=== PATIENT | male | born 1960 | race Caucasian/White ===

== ENCOUNTER 2018-08-02 10:19 | Emergency (ER) | payer MEDICAID ==
[~2018-08-02] VITALS: Ht 175.3 cm; Wt 83.3 kg
[~2018-08-02 10:19] MED LIST: IBUP-1985 PO; IBUP-1986 PO; NAPR220C15 PO; TERB12CR TP
[2018-08-02] MEDS ORDERED: HYDROcodone/acetaminophen 10/325mg tab PO ONE (10:40)
[2018-08-02 11:03] VITALS: BP 153/89
[2018-08-02] MEDS ORDERED: HYDR-569 PO (11:38)
== END 2018-08-02 11:49 | disposition home or self-care (01) ==
LOC: ER 10:20
DX: S60.512A Abrasion of left hand, initial encounter (principal); S60.811A Abrasion of right wrist, initial encounter; S00.81XA Abrasion of other part of head, initial encounter; W18.30XA Fall on same level, unspecified, initial encounter; Y93.89 Activity, other specified; Y92.89 Other specified places as the place of occurrence of the external cause; Y99.8 Other external cause status
CPT/HCPCS: 70450; 73130; 99284; A6257; A6258; A6449

== ENCOUNTER 2020-04-07 14:16 | Emergency (ER) | payer MEDICAID, OTHER ==
[~2020-04-07] VITALS: Ht 175.3 cm; Wt 77.8 kg
[~2020-04-07 14:16] MED LIST changes: +HYDR-4383 PO
[2020-04-07 14:25] VITALS: BP 131/79
[2020-04-07] MEDS ORDERED: triamcinolone acetonide 40mg/ml inj IM ONE (16:15)
[2020-04-07] MEDS ORDERED: TRIA15CR61 TOP (16:29)
[2020-04-07] MEDS ORDERED: CEPH500C5 PO (16:29)
[2020-04-07] MEDS ORDERED: MUPI22OI30 TOP (16:29)
== END 2020-04-07 16:39 | disposition home or self-care (01) ==
LOC: ER 14:17
DX: L40.9 Psoriasis, unspecified (principal); L01.00 Impetigo, unspecified; L03.116 Cellulitis of left lower limb; L03.115 Cellulitis of right lower limb; L03.114 Cellulitis of left upper limb; L03.113 Cellulitis of right upper limb; Z72.89 Other problems related to lifestyle; Z79.899 Other long term (current) drug therapy
CPT/HCPCS: 96372; 99283; J3301

== ENCOUNTER 2020-08-11 08:40 | Emergency (ER) | payer MEDICAID ==
[~2020-08-11] VITALS: Ht 175.3 cm; Wt 79.0 kg
[~2020-08-11 08:40] MED LIST changes: -HYDR-4383 PO; -IBUP-1985 PO; -IBUP-1986 PO; -NAPR220C15 PO; +NO HOME MEDS; -TERB12CR TP
[2020-08-11 08:51] VITALS: BP 143/75
== END 2020-08-11 09:56 | disposition home or self-care (01) ==
LOC: ER 08:40
DX: R18.8 Other ascites (principal); K76.9 Liver disease, unspecified; R10.84 Generalized abdominal pain; Z72.89 Other problems related to lifestyle
CPT/HCPCS: 99281

== ENCOUNTER 2020-08-14 11:31 | Inpatient (IN) | payer MEDICAID ==
[~2020-08-14] VITALS: Ht 175.3 cm; Wt 80.6 kg
[2020-08-14] MEDS ORDERED: normal saline 1000ML IV soln IVB ONE (11:55)
[2020-08-14 12:14] LABS: BASOPHILS # (AUTO) 0.1 X10'3 (0-0.2); BASOPHILS % (AUTO) 0.7 % (0-1); EOSINOPHILS % (AUTO) 0.2 % (0-6); HEMOGLOBIN 13.3 g/dl (14.0-17.9); LYMPHOCYTES # (AUTO) 1.2 X10'3 (1.1-4.8); LYMPHOCYTES % (AUTO) 13.6 % (21-51); MEAN CORPUSCULAR HEMOGLOBIN 34.7 PG (27.0-31.0); MEAN CORPUSCULAR HGB CONC 34.1 g/dL (33.0-36.5); MEAN CORPUSCULAR VOLUME 101.7 FL (78-98); MEAN PLATELET VOLUME 8.1 FL (7.4-10.4); MONOCYTES # (AUTO) 1.1 X10'3 (0-0.9); MONOCYTES % (AUTO) 12.1 % (2-12); NEUTROPHILS # (AUTO) 6.7 X10'3 (1.8-7.7); NEUTROPHILS % (AUTO) 73.4 % (42-75); PLATELET COUNT 152 X10'3 (140-440); RED BLOOD COUNT 3.84 X10'6 (4.70-6.10); RED CELL DISTRIBUTION WIDTH 14.2 % (11.5-14.5); WHITE BLOOD COUNT 9.2 X10'3 (4.5-11.0)
[2020-08-14 12:33] LABS: ALANINE AMINOTRANSFERASE 44 U/L (12-78); ALBUMIN 2.8 G/DL (3.4-5.0); ALKALINE PHOSPHATASE 155 IU/L (46-116); ANION GAP 8 (8-16); ASPARTATE AMINO TRANSFERASE 145 U/L (10-37); BILIRUBIN,TOTAL 4.2 MG/DL (0.1-1.0); BLOOD UREA NITROGEN 3 MG/DL (7-18); BUN/CREATININE RATIO 4.8 (5.4-32.0); CALCIUM 8.6 MG/DL (8.5-10.1); CHLORIDE 96 MMOL/L (99-107); CREATININE 0.62 MG/DL (0.60-1.10); ETHANOL 0.023 GM/DL (0.0-0.010); GLUCOSE 107 MG/DL (70-104); POTASSIUM 3.7 MMOL/L (3.5-5.1); SODIUM 130 MMOL/L (135-145); TOTAL CARBON DIOXIDE 26.3 MMOL/L (24-32); eGFR > 90 ML/MIN
[2020-08-14 12:35] LABS: ALBUMIN/GLOBULIN RATIO 0.8 (1.1-1.5); TOTAL PROTEIN 6.4 G/DL (6.4-8.2)
[2020-08-14] MEDS ORDERED: magnesium hydroxide 30ml (MOM) UD suspension PO PRN (13:10)
[2020-08-14] MEDS ORDERED: acetaminophen 325mg tablet PO PRN ×2 (13:10)
[2020-08-14] MEDS ORDERED: potassium CL 10mEq/100ml bag 100 ML IV PRN ×2 (13:10)
[2020-08-14] MEDS ORDERED: potassium Cl 20 mEq SR tablet PO PRN ×2 (13:10)
[2020-08-14] MEDS ORDERED: mag hydrox/Alum hydrox/simeth 30ml oral suspension PO PRN (13:10)
[2020-08-14] MEDS ORDERED: HYDROcodone/acetaminophen 5mg/325mg tablet PO PRN (13:10)
[2020-08-14] MEDS ORDERED: normal saline 1000ml 1,000 ML IV SCH (13:10)
[2020-08-14] MEDS ORDERED: LORazepam 2 mg/ml vial IV PRN ×2 (13:10→15:15)
[2020-08-14] MEDS ORDERED: haloperidol 5mg tablet PO PRN ×2 (13:10→15:15)
[2020-08-14] MEDS ORDERED: ondansetron/PF 4mg/2ml inj IV PRN (13:10)
[2020-08-14] MEDS ORDERED: HYDROcodone/acetaminophen 10/325mg tab PO PRN (13:10)
[2020-08-14] MEDS ORDERED: dextrose 50%-water 50ml dispensing syringe IV PRN (13:10)
[2020-08-14] MEDS ORDERED: magnesium 2GM in 50ml NS 50 ML IV PRN (13:10)
[2020-08-14] MEDS ORDERED: magnesium 4gm in 100ml NS 100 ML IV PRN (13:10)
[2020-08-14] MEDS ORDERED: thiamine 100mg/ml 2ml inj. IV ONE (13:10)
[2020-08-14] MEDS ORDERED: magnesium Cl slow-release 64mg tablet PO PRN (13:10)
[2020-08-14] MEDS ORDERED: haloperidol lactate 5mg/ml inj IM PRN ×2 (13:10→15:15)
--- NOTE | 2020-08-14 13:11 | NUR ---
PT NOTIFIED STAYING THE NIGHT. NO HOME MEDS EXCEPT IBPROFEN NEEDED. PT KNOWS GOING TO [facility] FOR FLUID TO BE REMOVED.
[2020-08-14] MEDS ORDERED: IBUP-1985 PO (13:14)
[2020-08-14] MEDS ORDERED: iohexol 300mg/ml 100ml inj. ONE (13:30)
--- NOTE | 2020-08-14 13:42 | NUR ---
PT BACK FROM CT IV INFILTRATED, SENT PT BACK.
[2020-08-14 14:15] LABS: CLARITY,URINE SLIGHTLY CLOUDY (Clear); GLUCOSE, URINE NEGATIVE (Neg); KETONES,URINE 15 mg/dl (Neg); LEUKOCYTE ESTERASE ,URINE NEGATIVE (Neg); OCCULT BLOOD,URINE NEGATIVE (Neg); PROTEIN,URINE TRACE mg/dl (Neg); UROBILINOGEN,URINE >=8.0 E.U/dL (0.2-1.0)
[2020-08-14 14:17] LABS: COLOR,URINE AMBER (Yellow); NITRITES, URINE NEGATIVE (Neg); UA COLLECTION TYPE CLN CATCH MIDSTREAM
[2020-08-14 14:26] LABS: MUCUS STRANDS MANY /LPF (Neg); URINE AMPHETAMINE SCREEN NEGATIVE (Neg); URINE BARBITUATE SCREEN NEGATIVE (Neg); URINE BENZODIAZEPINES SCREEN NEGATIVE (Neg); URINE CANNABINOID SCREEN NEGATIVE (Neg); URINE COCAINE SCREEN NEGATIVE (Neg); URINE METHADONE SCREEN NEGATIVE (Neg); URINE OPIATE SCREEN NEGATIVE (Neg); URINE PHENCYCLIDINE SCREEN NEGATIVE (Neg)
--- NOTE | 2020-08-14 14:26 | NUR ---
RELIEVING RN FOR BREAK, PT IS RESTING QUIETLY ON DR LISA DAWSON REQUESTING PICC NURSE TO PLACE IV PT HAS HAD MULTIPLE ATTEMPTS
[2020-08-14 14:27] LABS: SQUAMOUS EPITHELIAL CELL,UR FEW /LPF (FEW)
[2020-08-14 14:28] LABS: BACTERIA,URINE FEW /HPF (Neg); RBC,URINE 0-2 /HPF (0-2); TRANSITIONAL EPI CELLS,URINE FEW /HPF
[2020-08-14 14:29] LABS: WBC,URINE 0-4 /HPF (0-4)
--- NOTE | 2020-08-14 15:28 | NUR ---
CALLED CT TO NOTIFY THAT PICC NURSE PLACED IV IN RIGHT UPPER ARM
[2020-08-14] MEDS: nicotine 14mg patch - 24hr TD SCH (15:32)
[2020-08-14] MEDS ORDERED: iohexol 350MG/ML 100ml bottle IV ONE (15:37)
--- NOTE | 2020-08-14 16:06 | NUR ---
pt refuses to wear gown, pt upset ER does not have tv for him to watch the game. Pt informed the floor will be a wait on the room.
[2020-08-14 18:30] VITALS: BP 122/71
--- NOTE | 2020-08-14 18:30 | NUR ---
Patient in room [facility] 356. I have received report from Rajni MCGOWAN and had the opportunity to ask questions and assume patient care.
[2020-08-14] MEDS: K and/or MAG REPLACEMENT MC SCH (20:00)
[2020-08-14] MEDS ORDERED: temazepam 15mg capsule PO PRN (21:00)
[2020-08-15] VITALS: BP 106/57
[2020-08-15 05:40] LABS: BASOPHILS % (AUTO) 0.7 % (0-1); EOSINOPHILS % (AUTO) 0.6 % (0-6); HEMATOCRIT 36.2 % (42.0-52.0); HEMOGLOBIN 12.3 g/dl (14.0-17.9); LYMPHOCYTES # (AUTO) 1.6 X10'3 (1.1-4.8); LYMPHOCYTES % (AUTO) 23.2 % (21-51); MEAN CORPUSCULAR HEMOGLOBIN 35.1 PG (27.0-31.0); MEAN CORPUSCULAR HGB CONC 34.1 g/dL (33.0-36.5); MEAN PLATELET VOLUME 8.3 FL (7.4-10.4); MONOCYTES # (AUTO) 0.8 X10'3 (0-0.9); MONOCYTES % (AUTO) 12.3 % (2-12); NEUTROPHILS # (AUTO) 4.3 X10'3 (1.8-7.7); NEUTROPHILS % (AUTO) 63.2 % (42-75); PLATELET COUNT 146 X10'3 (140-440); RED BLOOD COUNT 3.51 X10'6 (4.70-6.10); RED CELL DISTRIBUTION WIDTH 14.1 % (11.5-14.5); WHITE BLOOD COUNT 6.7 X10'3 (4.5-11.0)
[2020-08-15 05:53] LABS: PARTIAL THROMBOPLASTIN TIME 30 SECONDS (22-32)
[2020-08-15 06:00] LABS: ALANINE AMINOTRANSFERASE 38 U/L (12-78); ALBUMIN 2.5 G/DL (3.4-5.0); ALKALINE PHOSPHATASE 141 IU/L (46-116); ANION GAP 7 (8-16); ASPARTATE AMINO TRANSFERASE 118 U/L (10-37); BILIRUBIN,TOTAL 4.5 MG/DL (0.1-1.0); BLOOD UREA NITROGEN 4 MG/DL (7-18); BUN/CREATININE RATIO 6.1 (5.4-32.0); CALCIUM 8.2 MG/DL (8.5-10.1); CHLORIDE 98 MMOL/L (99-107); CREATININE 0.66 MG/DL (0.60-1.10); GLUCOSE 96 MG/DL (70-104); HDL CHOLESTEROL 9 MG/DL (35-60); LDL CHOLESTEROL 63 MG/DL (50-100); MAGNESIUM 1.9 MG/DL (1.5-2.4); POTASSIUM 3.5 MMOL/L (3.5-5.1); SODIUM 133 MMOL/L (135-145); TOTAL CARBON DIOXIDE 27.7 MMOL/L (24-32); eGFR > 90 ML/MIN
[2020-08-15 06:02] LABS: ALBUMIN/GLOBULIN RATIO 0.8 (1.1-1.5); CHOL/HDL RATIO 8.4 (0.00-4.99); CHOLESTEROL 76 MG/DL (0-200); TOTAL PROTEIN 5.8 G/DL (6.4-8.2); TRIGLYCERIDES 100 MG/DL (20-135)
--- NOTE | 2020-08-15 06:20 | NUR ---
Problems reprioritized. Patient report given, questions answered & plan of care reviewed with Sara RN.
[2020-08-15 08:00] VITALS: BP 120/73
[2020-08-15] MEDS: K and/or MAG REPLACEMENT MC SCH (08:00)
[2020-08-15] MEDS ORDERED: folic acid 1mg tablet PO SCH (08:00)
[2020-08-15] MEDS ORDERED: multivitamins, therapeutics tablet PO SCH (08:00)
[2020-08-15] MEDS ORDERED: thiamine 100mg tablet PO SCH (08:00)
[2020-08-15] MEDS: nicotine 14mg patch - 24hr TD SCH (08:42)
[2020-08-15 11:54] VITALS: BP 107/65
--- NOTE | 2020-08-15 12:00 | NUR ---
Patient in room [facility] 356. I have received report from Sara MCGOWAN and had the opportunity to ask questions and assume patient care.
--- NOTE | 2020-08-15 12:04 | NUR ---
Notified Dr. Snider that this patient is refusing a biopsy procedure. Pt only wants "the fluid off my stomach and im out of here."
--- NOTE | 2020-08-15 15:00 | NUR ---
Patient refused paracentesis and liver biopsy. Patient was educated on the importance of both the paracentesis and liver biopsy yet he still refused the procedures. Patient discharged home with orders to follow up with a his primary care provider.
[2020-08-16 12:01] LABS: CARCINOEMBRYONIC ANTIGEN 2.7 ng/mL (0.0-4.7); HBSAG SCREEN Negative (Negative); HEP A AB, IGM Negative (Negative); HEPATITIS C ANTIBODY <0.1 s/co ratio (0.0-0.9)
[2020-08-16] MEDS ORDERED: LORazepam 2 mg/ml vial IV PRN ×2 (13:10→15:15)
[2020-08-16] MEDS ORDERED: LORazepam 1 MG tablet PO PRN ×2 (13:10→15:15)
[2020-08-18] MEDS ORDERED: LORazepam 1 MG tablet PO PRN ×2 (13:10→15:15)
[2020-08-18] MEDS ORDERED: LORazepam 2 mg/ml vial IV PRN ×2 (13:10→15:15)
== END 2020-08-15 14:58 | disposition home or self-care (01) | DRG 281 ==
LOC: ER 11:32 → ED HOLD 13:07 → SUR 3N 17:22
PROVIDERS: ADMIT Family Medicine; ATTEND Family Medicine
PROC: BW201ZZ Computerized Tomography (CT Scan) of Abdomen using Low Osmolar Contrast (ICD-10-PCS; principal; 2020-08-14)
DX: C22.8 Malignant neoplasm of liver, primary, unspecified as to type (principal); K70.11 Alcoholic hepatitis with ascites; F17.210 Nicotine dependence, cigarettes, uncomplicated; K76.0 Fatty (change of) liver, not elsewhere classified; E87.1 Hypo-osmolality and hyponatremia; R74.01 Elevation of levels of liver transaminase levels; D53.9 Nutritional anemia, unspecified; D68.9 Coagulation defect, unspecified; E80.6 Other disorders of bilirubin metabolism; F10.20 Alcohol dependence, uncomplicated; Z88.0 Allergy status to penicillin
CPT/HCPCS: 36415; 71045; 74170; 80053; 80061; 80074; 80305; 80320; 81001; 82103; 82140; 82378; 83735; 85025; 85610; 85730; 86301; 86304; 87081; 93005; 96361; 96374; 99285; G0378; J3411; J7030; Q9967

== ENCOUNTER 2020-09-07 06:53 | Day surgery (SDC) | payer MEDICAID ==
[~2020-09-07] VITALS: Ht 175.3 cm; Wt 78.3 kg
[~2020-09-07 06:53] MED LIST changes: +IBUP-1985 PO; -NO HOME MEDS
[2020-09-07] MEDS ORDERED: albumin 25% 100mL bottle x 1 IV PRN (07:30)
[2020-09-07 08:05] VITALS: BP 126/68
[2020-09-07 09:15] VITALS: BP 125/65
[2020-09-07 09:30] VITALS: BP 122/62
[2020-09-07 09:45] VITALS: BP 125/68
[2020-09-07 10:00] VITALS: BP 119/60
== END 2020-09-07 10:05 | disposition home or self-care (01) ==
LOC: SSTAY O 06:53
PROVIDERS: ATTEND Radiology Vascular & Interventional Radiology
DX: R18.8 Other ascites (principal); D64.9 Anemia, unspecified; E87.1 Hypo-osmolality and hyponatremia; E80.6 Other disorders of bilirubin metabolism; Z98.890 Other specified postprocedural states; F17.210 Nicotine dependence, cigarettes, uncomplicated; Z88.0 Allergy status to penicillin; Z72.89 Other problems related to lifestyle
CPT/HCPCS: 49083

== ENCOUNTER 2020-09-15 06:59 | Day surgery (SDC) | payer MEDICAID ==
[~2020-09-15] VITALS: Ht 154.9 cm; Wt 80.8 kg
[2020-09-15] MEDS ORDERED: albumin 25% 100mL bottle x 1 IV PRN (07:20)
[2020-09-15 07:43] VITALS: BP 124/65
[2020-09-15 08:53] VITALS: BP 127/74
[2020-09-15 09:32] VITALS: BP 127/53
[2020-09-15 09:47] VITALS: BP 110/54
[2020-09-15 10:02] VITALS: BP 104/47
[2020-09-15 10:30] VITALS: BP 114/49
== END 2020-09-15 10:40 | disposition home or self-care (01) ==
LOC: SSTAY O 06:59
PROVIDERS: ATTEND Radiology Vascular & Interventional Radiology
DX: R18.8 Other ascites (principal); D64.9 Anemia, unspecified; E87.1 Hypo-osmolality and hyponatremia; E80.6 Other disorders of bilirubin metabolism; Z98.890 Other specified postprocedural states; F17.210 Nicotine dependence, cigarettes, uncomplicated; Z72.89 Other problems related to lifestyle; Z79.899 Other long term (current) drug therapy
CPT/HCPCS: 49083; P9047

== ENCOUNTER 2020-09-22 07:21 | Day surgery (SDC) | payer MEDICAID ==
[~2020-09-22] VITALS: Ht 175.3 cm; Wt 80.1 kg
[2020-09-22] MEDS ORDERED: albumin 25% 100mL bottle x 1 IV PRN (07:45)
[2020-09-22] MEDS ORDERED: MILK1CAP3 PO (08:02)
[2020-09-22 08:36] VITALS: BP_SYST 123; BP_SYST 125; BP_DIAS 72; BP_DIAS 75
[2020-09-22 08:51] VITALS: BP 121/68
[2020-09-22 09:06] VITALS: BP 110/58
[2020-09-22 09:21] VITALS: BP 107/61
[2020-09-22 09:36] VITALS: BP 109/62
[2020-09-22 09:50] VITALS: BP 134/59
== END 2020-09-22 10:00 | disposition home or self-care (01) ==
LOC: SSTAY O 07:21
PROVIDERS: ATTEND Radiology Diagnostic Radiology
DX: R18.8 Other ascites (principal); E87.1 Hypo-osmolality and hyponatremia; E64.9 Sequelae of unspecified nutritional deficiency; Z72.89 Other problems related to lifestyle; F17.290 Nicotine dependence, other tobacco product, uncomplicated; E80.6 Other disorders of bilirubin metabolism; Z98.890 Other specified postprocedural states; F17.210 Nicotine dependence, cigarettes, uncomplicated; Z88.0 Allergy status to penicillin; Z79.899 Other long term (current) drug therapy
CPT/HCPCS: 49083; P9047

== ENCOUNTER 2020-10-02 06:24 | Day surgery (SDC) | payer MEDICAID ==
[~2020-10-02] VITALS: Ht 175.3 cm; Wt 82.0 kg
[2020-10-02] VITALS (10 sets, daily range): BP systolic 91–116; BP diastolic 43–65
[~2020-10-02 06:24] MED LIST changes: -IBUP-1985 PO; +MILK1CAP3 PO
[2020-10-02] MEDS ORDERED: IBUP-1985 PO (07:18)
[2020-10-02] MEDS ORDERED: SPIR25TA5 PO (07:18)
[2020-10-02] MEDS ORDERED: FURO20TA4 PO (07:18)
[2020-10-02] MEDS: albumin 25% 100mL bottle x 1 IV PRN ×2 (09:03→09:51)
== END 2020-10-02 10:40 | disposition home or self-care (01) ==
LOC: SSTAY O 06:24
PROVIDERS: ATTEND Radiology Diagnostic Radiology
DX: R18.8 Other ascites (principal); D64.9 Anemia, unspecified; E87.1 Hypo-osmolality and hyponatremia; E80.6 Other disorders of bilirubin metabolism; Z98.890 Other specified postprocedural states; Z72.89 Other problems related to lifestyle; F17.210 Nicotine dependence, cigarettes, uncomplicated; Z88.0 Allergy status to penicillin; Z79.899 Other long term (current) drug therapy
CPT/HCPCS: 49083; P9047

== ENCOUNTER 2020-10-12 06:34 | Day surgery (SDC) | payer MEDICAID ==
[~2020-10-12] VITALS: Ht 175.3 cm; Wt 82.6 kg
[2020-10-12] VITALS (10 sets, daily range): BP systolic 105–126; BP diastolic 55–69
[~2020-10-12 06:34] MED LIST changes: +FURO20TA4 PO; +IBUP-1985 PO; +SPIR25TA5 PO
[2020-10-12] MEDS ORDERED: normal saline 1000ml 1,000 ML IV PRN (06:50)
[2020-10-12] MEDS ORDERED: albumin 25% 100mL bottle x 1 IV PRN (06:50)
== END 2020-10-12 10:25 | disposition home or self-care (01) ==
LOC: SSTAY O 06:34
PROVIDERS: ATTEND Radiology Vascular & Interventional Radiology
DX: R18.8 Other ascites (principal); Z72.89 Other problems related to lifestyle; F17.290 Nicotine dependence, other tobacco product, uncomplicated; D64.9 Anemia, unspecified; E87.1 Hypo-osmolality and hyponatremia; E80.6 Other disorders of bilirubin metabolism; Z98.890 Other specified postprocedural states; F17.210 Nicotine dependence, cigarettes, uncomplicated; Z88.0 Allergy status to penicillin; Z79.899 Other long term (current) drug therapy
CPT/HCPCS: 49083; P9047

== ENCOUNTER 2020-10-19 07:14 | Day surgery (SDC) | payer MEDICAID ==
[2020-10-19] VITALS (9 sets, daily range): BP systolic 98–116; BP diastolic 51–71
[~2020-10-19] VITALS: Ht 175.3 cm; Wt 80.6 kg
[2020-10-19] MEDS ORDERED: albumin 25% 100mL bottle x 1 IV PRN (07:30)
== END 2020-10-19 10:05 | disposition home or self-care (01) ==
LOC: SSTAY O 07:14
PROVIDERS: ATTEND Radiology Diagnostic Radiology
DX: R18.8 Other ascites (principal); D64.9 Anemia, unspecified; E87.1 Hypo-osmolality and hyponatremia; E80.6 Other disorders of bilirubin metabolism; Z72.89 Other problems related to lifestyle; F17.210 Nicotine dependence, cigarettes, uncomplicated; Z88.0 Allergy status to penicillin; Z79.899 Other long term (current) drug therapy
CPT/HCPCS: 49083; P9047

== ENCOUNTER 2020-10-27 07:34 | Day surgery (SDC) | payer MEDICAID ==
[2020-10-27] VITALS (8 sets, daily range): BP systolic 99–151; BP diastolic 53–77
[~2020-10-27] VITALS: Ht 175.3 cm; Wt 81.8 kg
[~2020-10-27 07:34] MED LIST changes: -MILK1CAP3 PO
[2020-10-27] MEDS ORDERED: albumin 25% 100mL bottle x 1 IV PRN (07:55)
[2020-10-27] MEDS ORDERED: normal saline 1000ml 1,000 ML IV PRN (07:55)
== END 2020-10-27 10:15 | disposition home or self-care (01) ==
LOC: SSTAY O 07:34
PROVIDERS: ATTEND Radiology Diagnostic Radiology
DX: R18.8 Other ascites (principal); F17.290 Nicotine dependence, other tobacco product, uncomplicated; D64.9 Anemia, unspecified; E87.1 Hypo-osmolality and hyponatremia; E80.6 Other disorders of bilirubin metabolism; F17.210 Nicotine dependence, cigarettes, uncomplicated; Z72.89 Other problems related to lifestyle; Z88.0 Allergy status to penicillin; Z79.899 Other long term (current) drug therapy
CPT/HCPCS: 49083; P9047

== ENCOUNTER 2020-11-02 06:45 | Day surgery (SDC) | payer MEDICAID ==
[~2020-11-02] VITALS: Ht 175.3 cm; Wt 82.0 kg
[2020-11-02] MEDS ORDERED: albumin 25% 100mL bottle x 1 IV PRN (07:05)
[2020-11-02 07:40] VITALS: BP 123/61
[2020-11-02 08:35] VITALS: BP 117/67
[2020-11-02 08:49] VITALS: BP 114/60
[2020-11-02 09:04] VITALS: BP 113/58
[2020-11-02 09:20] VITALS: BP 107/52
== END 2020-11-02 09:35 | disposition home or self-care (01) ==
LOC: SSTAY O 06:45
PROVIDERS: ATTEND Radiology Vascular & Interventional Radiology
DX: R18.8 Other ascites (principal); D64.9 Anemia, unspecified; F17.210 Nicotine dependence, cigarettes, uncomplicated; Z72.89 Other problems related to lifestyle; Z88.0 Allergy status to penicillin; Z98.890 Other specified postprocedural states
CPT/HCPCS: 49083; P9047

== ENCOUNTER 2020-11-07 10:45 | Emergency (ER) | payer MEDICAID ==
[~2020-11-07] VITALS: Ht 175.3 cm; Wt 76.6 kg
--- NOTE | 2020-11-07 17:40 | NUR ---
KAREEM Berry bedside for paracentesis, RN assist. Verbal order received to remove 4 litres and may remove a 5th litre if still flowing.
[2020-11-07 18:16] VITALS: BP 116/55
== END 2020-11-07 19:00 | disposition home or self-care (01) ==
LOC: ER 10:45
DX: R06.02 Shortness of breath (principal); R10.9 Unspecified abdominal pain; Z88.0 Allergy status to penicillin; Z79.899 Other long term (current) drug therapy; Z98.890 Other specified postprocedural states
CPT/HCPCS: 49083; 99285

== ENCOUNTER 2020-11-10 11:08 | Emergency (ER) | payer MEDICAID ==
[~2020-11-10] VITALS: Ht 175.3 cm; Wt 78.6 kg
[2020-11-10 11:13] VITALS: BP 124/60
== END 2020-11-10 11:59 | disposition home or self-care (01) ==
LOC: ER 11:09
DX: L76.82 Other postprocedural complications of skin and subcutaneous tissue (principal); L40.9 Psoriasis, unspecified; Z88.0 Allergy status to penicillin; Z79.899 Other long term (current) drug therapy
CPT/HCPCS: 12001; 99282

== ENCOUNTER 2020-11-13 06:37 | Day surgery (SDC) | payer MEDICAID ==
[2020-11-13] VITALS (7 sets, daily range): BP systolic 105–133; BP diastolic 49–80
[~2020-11-13] VITALS: Ht 175.3 cm; Wt 81.3 kg
[2020-11-13] MEDS ORDERED: albumin 25% 100mL bottle x 1 IV PRN (06:50)
== END 2020-11-13 09:28 | disposition home or self-care (01) ==
LOC: SSTAY O 06:37
PROVIDERS: ATTEND Radiology Diagnostic Radiology
DX: R18.8 Other ascites (principal); D64.9 Anemia, unspecified; E87.1 Hypo-osmolality and hyponatremia; Z72.89 Other problems related to lifestyle; E80.6 Other disorders of bilirubin metabolism; Z98.890 Other specified postprocedural states; F17.210 Nicotine dependence, cigarettes, uncomplicated; Z88.0 Allergy status to penicillin; Z79.899 Other long term (current) drug therapy
CPT/HCPCS: 49083; P9047

== ENCOUNTER 2020-11-17 07:30 | Day surgery (SDC) | payer MEDICAID ==
[~2020-11-17] VITALS: Ht 175.3 cm; Wt 81.3 kg
[2020-11-17] VITALS (8 sets, daily range): BP systolic 70–129; BP diastolic 52–65
[2020-11-17] MEDS ORDERED: albumin 25% 100mL bottle x 1 IV PRN (07:45)
[2020-11-17] MEDS ORDERED: LACT10SO57 PO (07:49)
== END 2020-11-17 10:10 | disposition home or self-care (01) ==
LOC: SSTAY O 07:30
PROVIDERS: ATTEND Radiology Vascular & Interventional Radiology
DX: R18.8 Other ascites (principal); D64.9 Anemia, unspecified; E87.1 Hypo-osmolality and hyponatremia; E80.6 Other disorders of bilirubin metabolism; Z88.0 Allergy status to penicillin; Z98.890 Other specified postprocedural states; F17.210 Nicotine dependence, cigarettes, uncomplicated; Z72.89 Other problems related to lifestyle; Z79.899 Other long term (current) drug therapy
CPT/HCPCS: 49083; P9047

== ENCOUNTER 2020-11-19 12:05 | Inpatient (IN) | payer MEDICAID ==
[~2020-11-19] VITALS: Ht 175.3 cm; Wt 90.0 kg
[~2020-11-19 12:05] MED LIST changes: +LACT10SO57 PO
[2020-11-19] MEDS ORDERED: oxyCODONE IR 5mg (immed. release) tablet PO ONE (12:55)
[2020-11-19] MEDS ORDERED: ondansetron/PF 4mg/2ml inj IV ONE (12:55)
[2020-11-19 13:21] LABS: BASOPHILS % (AUTO) 0.3 % (0-1); EOSINOPHILS % (AUTO) 0.5 % (0-6); HEMATOCRIT 29.1 % (42.0-52.0); LYMPHOCYTES # (AUTO) 1.1 X10'3 (1.1-4.8); LYMPHOCYTES % (AUTO) 11.7 % (21-51); MEAN CORPUSCULAR VOLUME 98.5 FL (78-98); MEAN PLATELET VOLUME 7.2 FL (7.4-10.4); MONOCYTES % (AUTO) 10.5 % (2-12); NEUTROPHILS # (AUTO) 7.2 X10'3 (1.8-7.7); PLATELET COUNT 108 X10'3 (140-440); RED BLOOD COUNT 2.96 X10'6 (4.70-6.10); WHITE BLOOD COUNT 9.4 X10'3 (4.5-11.0)
[2020-11-19 13:40] LABS: ALANINE AMINOTRANSFERASE 42 U/L (12-78); ALBUMIN/GLOBULIN RATIO 1.1 (1.1-1.5); ALKALINE PHOSPHATASE 111 IU/L (46-116); ANION GAP 12 (8-16); ASPARTATE AMINO TRANSFERASE 65 U/L (10-37); BILIRUBIN,TOTAL 3.5 MG/DL (0.1-1.0); BLOOD UREA NITROGEN 18 MG/DL (7-18); BUN/CREATININE RATIO 13.8 (5.4-32.0); CALCIUM 8.6 MG/DL (8.5-10.1); CHLORIDE 82 MMOL/L (99-107); GLUCOSE 109 MG/DL (70-104); LIPASE 259 U/L (73-393); POTASSIUM 4.9 MMOL/L (3.5-5.1); TOTAL CARBON DIOXIDE 19.2 MMOL/L (24-32); TOTAL PROTEIN 5.8 G/DL (6.4-8.2); TROPONIN I < 0.04 NG/ML (0.0-0.05); eGFR 57 ML/MIN
[2020-11-19 13:41] LABS: SODIUM 113 MMOL/L (135-145)
[2020-11-19 13:46] LABS: CLARITY,URINE CLEAR (Clear); COLOR,URINE YELLOW (Yellow); GLUCOSE, URINE NEGATIVE (Neg); KETONES,URINE NEGATIVE (Neg); LEUKOCYTE ESTERASE ,URINE NEGATIVE (Neg); NITRITES, URINE NEGATIVE (Neg); OCCULT BLOOD,URINE NEGATIVE (Neg); PH,URINE 5.5 (4.8-8.0); PROTEIN,URINE NEGATIVE (Neg); UA COLLECTION TYPE URINAL; UROBILINOGEN,URINE 0.2 E.U/dL (0.2-1.0)
[2020-11-19 14:49] LABS: HEMOGLOBIN 9.9 g/dl (14.0-17.9); MEAN CORPUSCULAR HEMOGLOBIN 35.5 PG (27.0-31.0); MEAN CORPUSCULAR HGB CONC 35.4 g/dL (33.0-36.5)
[2020-11-19 14:51] LABS: ACANTHOCYTES FEW; BURR CELLS FEW; PLATELET ESTIMATE DECREASED; SPHEROCYTES FEW
[2020-11-19 16:34] LABS: TOTAL PROTEIN,URINE RANDOM 14.5 MG/DL
[2020-11-19 16:36] LABS: SODIUM,URINE RANDOM < 15 MEQ/L
[2020-11-19] MEDS ORDERED: potassium Cl 40MEQ/1/2NS 520ml 520 ML IV PRN ×2 (16:40)
[2020-11-19] MEDS ORDERED: acetaminophen 325mg tablet PO PRN (16:40)
[2020-11-19] MEDS ORDERED: potassium Cl 20 mEq SR tablet PO PRN ×2 (16:40)
[2020-11-19] MEDS ORDERED: magnesium 4gm in 100ml NS 100 ML IV PRN (16:40)
[2020-11-19] MEDS ORDERED: magnesium Cl slow-release 64mg tablet PO PRN (16:40)
[2020-11-19] MEDS ORDERED: magnesium 2GM in 50ml NS 50 ML IV PRN (16:40)
[2020-11-19] MEDS ORDERED: ondansetron/PF 4mg/2ml inj IV PRN (16:40)
[2020-11-19] MEDS ORDERED: sodium chloride 3% IV.soln 500 ML IV ONE (17:00)
[2020-11-19] MEDS ORDERED: sodium chloride 3% IV.soln 100 ML IV ONE ×2 (17:35→20:40)
[2020-11-19] MEDS ORDERED: THIA100T66 PO (17:52)
[2020-11-19] MEDS ORDERED: IBUP-1986 PO (17:52)
[2020-11-19 18:38] LABS: ALBUMIN 2.8 G/DL (3.4-5.0); ANION GAP 10 (8-16); BLOOD UREA NITROGEN 17 MG/DL (7-18); BUN/CREATININE RATIO 12.6 (5.4-32.0); CALCIUM 8.2 MG/DL (8.5-10.1); CHLORIDE 84 MMOL/L (99-107); CREATININE 1.35 MG/DL (0.60-1.10); GLUCOSE 100 MG/DL (70-104); POTASSIUM 4.7 MMOL/L (3.5-5.1); TOTAL CARBON DIOXIDE 21.4 MMOL/L (24-32); eGFR 54 ML/MIN
[2020-11-19 18:46] LABS: SODIUM 115 MMOL/L (135-145)
[2020-11-19] MEDS: normal saline 1000ml 1,000 ML IV SCH (18:54)
--- NOTE | 2020-11-19 19:00 | NUR ---
na level 115meq. DR. TO WAS PAGED. DR. TO STATES PATIENT NEEDS TO BE AN LIVESTOCK FEEDER PATIENT.
--- NOTE | 2020-11-19 19:19 | NUR ---
KAREEM MULLEN, CALLED TO UPDATED OF INCREASE IN NA TO 115 (FROM 113). UPDATED THAT DR. TO HAD REPORTED THAT PT WILL NEED TO BE AN ICU PATIENT. MARTELL TO PLACE ADDITIONAL ORDERS SHORTLY. SHE REQUEST A REPEAT NA BLOOD AND A URINE OSM AND URINE SODIUM STAT. LIME KILN WORKER HELPER UPDATED OF THE ABOVE.
[2020-11-19 19:54] LABS: SODIUM,URINE RANDOM < 15 MEQ/L
[2020-11-19 20:12] LABS: OSMOLALITY UA 159 MOSM/K (50-1400)
[2020-11-19 20:14] LABS: ALBUMIN 2.7 G/DL (3.4-5.0); ANION GAP 6 (8-16); BLOOD UREA NITROGEN 19 MG/DL (7-18); BUN/CREATININE RATIO 13.5 (5.4-32.0); CALCIUM 8.2 MG/DL (8.5-10.1); CHLORIDE 86 MMOL/L (99-107); CREATININE 1.41 MG/DL (0.60-1.10); GLUCOSE 109 MG/DL (70-104); POTASSIUM 4.7 MMOL/L (3.5-5.1); TOTAL CARBON DIOXIDE 21.4 MMOL/L (24-32); eGFR 51 ML/MIN
[2020-11-19 20:20] LABS: SODIUM 113 MMOL/L (135-145)
--- NOTE | 2020-11-19 20:47 | NUR ---
KAREEM PUCKETT CALLING RE NA. SHE WILL ORDER ANOTHER NA 3% 100ML INFUSION AND THEN REQUESTS NA REDRAW 15 MIN AFTER INFUSION COMPLETED AND ALSO URINE NA AND SODIUM.
[2020-11-19] MEDS: K and/or MAG REPLACEMENT MC SCH (22:55)
[2020-11-19] MEDS: docusate sod 100mg capsule PO SCH (22:56)
[2020-11-19] MEDS: thiamine 100mg tablet PO SCH (22:58)
--- NOTE | 2020-11-19 23:49 | NUR ---
verbal received from dr. sun for pain meds. oxycodone 5 mg tab q6hr prn pain.
[2020-11-19] MEDS ORDERED: oxyCODONE IR 5mg (immed. release) tablet PO PRN (23:50)
--- NOTE | 2020-11-20 00:01 | NUR ---
Yuniel PUCKETT NP, UPDATED THAT NA NOW 118 AND URINE NA/OSMOL NOW RUNNING.
[2020-11-20 00:09] LABS: SODIUM,URINE RANDOM < 15 MEQ/L
[2020-11-20 00:20] LABS: OSMOLALITY UA 111 MOSM/K (50-1400)
--- NOTE | 2020-11-20 02:37 | NUR ---
REPORT TO JUAN M BRISCOE, [facility]. IPA [phone]. PT REPORTS PAIN LOWER NOW THAT HE HAS HAD PAIN MEDS AND THAT HE IS EXCITED TO HAVE A ROOM AND HOPERFUL OF WATCHING TV. CURRENT VSS.
--- NOTE | 2020-11-20 03:00 | NUR ---
Patient in room MED 309. I have received report from CHRISTINE MCGOWAN and had the opportunity to ask questions and assume patient care.
[2020-11-20 03:40] VITALS: BP 114/64
[2020-11-20] MEDS: normal saline 1000ml 1,000 ML IV SCH (04:22)
--- NOTE | 2020-11-20 06:24 | NUR ---
Problems reprioritized. Patient report given, questions answered & plan of care reviewed with MICHELLE MCGOWAN.
[2020-11-20 06:55] LABS: BASOPHILS % (AUTO) 0.5 % (0-1); EOSINOPHILS # (AUTO) 0.1 X10'3 (0-0.9); EOSINOPHILS % (AUTO) 0.8 % (0-6); LYMPHOCYTES # (AUTO) 1.1 X10'3 (1.1-4.8); LYMPHOCYTES % (AUTO) 13.7 % (21-51); MONOCYTES % (AUTO) 12.6 % (2-12); NEUTROPHILS # (AUTO) 5.6 X10'3 (1.8-7.7); NEUTROPHILS % (AUTO) 72.4 % (42-75); PLATELET COUNT 102 X10'3 (140-440); WHITE BLOOD COUNT 7.7 X10'3 (4.5-11.0)
[2020-11-20 07:05] LABS: ALBUMIN 2.7 G/DL (3.4-5.0); ANION GAP 10 (8-16); BLOOD UREA NITROGEN 18 MG/DL (7-18); BUN/CREATININE RATIO 14.6 (5.4-32.0); CALCIUM 7.9 MG/DL (8.5-10.1); CHLORIDE 92 MMOL/L (99-107); CREATININE 1.23 MG/DL (0.60-1.10); GLUCOSE 108 MG/DL (70-104); POTASSIUM 4.4 MMOL/L (3.5-5.1); SODIUM 123 MMOL/L (135-145); TOTAL CARBON DIOXIDE 21.1 MMOL/L (24-32); eGFR 60 ML/MIN
--- NOTE | 2020-11-20 07:27 | NUR ---
Discussed fluid restrictions x3. Not particularly agreeable.
[2020-11-20 07:29] LABS: HEMOGLOBIN 10.1 g/dl (14.0-17.9)
[2020-11-20 07:51] LABS: MEAN CORPUSCULAR HEMOGLOBIN 35.1 PG (27.0-31.0); MEAN CORPUSCULAR HGB CONC 35.5 g/dL (33.0-36.5); MEAN CORPUSCULAR VOLUME 98.9 FL (78-98); RED BLOOD COUNT 2.83 X10'6 (4.70-6.10); RED CELL DISTRIBUTION WIDTH 15.1 % (11.5-14.5)
[2020-11-20] MEDS: thiamine 100mg tablet PO SCH (07:51)
[2020-11-20] MEDS: docusate sod 100mg capsule PO SCH (07:51)
[2020-11-20] MEDS: K and/or MAG REPLACEMENT MC SCH (08:00)
[2020-11-20 10:30] VITALS: BP 104/60
== END 2020-11-20 12:30 | disposition home or self-care (01) | DRG 279 ==
LOC: ER 12:05 → ED HOLD 16:38 → MED 3N 11-20 02:51
PROVIDERS: ADMIT Internal Medicine; ATTEND Family Medicine
DX: K72.90 Hepatic failure, unspecified without coma (principal); N17.9 Acute kidney failure, unspecified; E87.1 Hypo-osmolality and hyponatremia; K74.60 Unspecified cirrhosis of liver; N18.9 Chronic kidney disease, unspecified; D63.8 Anemia in other chronic diseases classified elsewhere; F17.210 Nicotine dependence, cigarettes, uncomplicated; F10.20 Alcohol dependence, uncomplicated; L40.9 Psoriasis, unspecified
CPT/HCPCS: 36415; 80048; 80053; 81003; 82570; 83690; 83735; 83935; 84133; 84156; 84295; 84300; 84484; 85008; 85025; 87081; 96374; 99285; G0378; J2405; J7030; J7131

== ENCOUNTER 2020-11-24 07:14 | Emergency (ER) | payer MEDICAID ==
[~2020-11-24] VITALS: Ht 175.3 cm; Wt 78.3 kg
[~2020-11-24 07:14] MED LIST changes: -FURO20TA4 PO; -IBUP-1985 PO; -SPIR25TA5 PO; +THIA100T66 PO
--- NOTE | 2020-11-24 08:39 | NUR ---
Dr. Sood at bedside for paracentesis.
[2020-11-24 08:48] LABS: BASOPHILS # (AUTO) 0.1 X10'3 (0-0.2); BASOPHILS % (AUTO) 0.8 % (0-1); EOSINOPHILS # (AUTO) 0.1 X10'3 (0-0.9); EOSINOPHILS % (AUTO) 0.8 % (0-6); HEMATOCRIT 27.6 % (42.0-52.0); HEMOGLOBIN 9.7 g/dl (14.0-17.9); LYMPHOCYTES % (AUTO) 13.9 % (21-51); MEAN CORPUSCULAR HEMOGLOBIN 35.8 PG (27.0-31.0); MEAN CORPUSCULAR HGB CONC 35.3 g/dL (33.0-36.5); MEAN CORPUSCULAR VOLUME 101.4 FL (78-98); MEAN PLATELET VOLUME 7.1 FL (7.4-10.4); MONOCYTES # (AUTO) 0.8 X10'3 (0-0.9); MONOCYTES % (AUTO) 11.7 % (2-12); NEUTROPHILS % (AUTO) 72.8 % (42-75); PLATELET COUNT 98 X10'3 (140-440); RED BLOOD COUNT 2.72 X10'6 (4.70-6.10); RED CELL DISTRIBUTION WIDTH 15.1 % (11.5-14.5); WHITE BLOOD COUNT 6.9 X10'3 (4.5-11.0)
[2020-11-24 09:04] LABS: ALANINE AMINOTRANSFERASE 37 U/L (12-78); ALBUMIN 2.8 G/DL (3.4-5.0); ALKALINE PHOSPHATASE 139 IU/L (46-116); ANION GAP 9 (8-16); ASPARTATE AMINO TRANSFERASE 54 U/L (10-37); BILIRUBIN,TOTAL 2.6 MG/DL (0.1-1.0); BLOOD UREA NITROGEN 13 MG/DL (7-18); BUN/CREATININE RATIO 13.3 (5.4-32.0); CHLORIDE 94 MMOL/L (99-107); CREATININE 0.98 MG/DL (0.60-1.10); GLUCOSE 105 MG/DL (70-104); SODIUM 123 MMOL/L (135-145); TOTAL CARBON DIOXIDE 20.1 MMOL/L (24-32); TOTAL PROTEIN 5.5 G/DL (6.4-8.2); eGFR 78 ML/MIN
--- NOTE | 2020-11-24 09:16 | NUR ---
1st vacuatainer bottls full, changed to 2nd bottle.
--- NOTE | 2020-11-24 09:21 | NUR ---
2nd vautainer full, changed to 3rd vacutainer.
[2020-11-24 09:48] LABS: BF MESOTHELIAL CELLS FEW; BF RBC COUNT 365 /CU MM; BF WBC COUNT 90 /CU MM (0-1000); BFAPPEAR HAZY; BFCOLOR YELLOW; BFVOLUME 5 ML; LYMPHOCYTES,BODY FLUID 28 %; MONOCYTES,BODY FLUID 45 %; NEUTROPHILS,BODY FLUID 27 %
--- NOTE | 2020-11-24 09:48 | NUR ---
3rd vacutainer is ful changed to 4th vacutainer.
--- NOTE | 2020-11-24 09:56 | NUR ---
4th vacutainer is full changed to 5th vacutainer.
--- NOTE | 2020-11-24 10:06 | NUR ---
Darya greenwood in [facility] - 11/24/20 at 1007 by MICHELLE 4th vacutainer full changed to 5th.
--- NOTE | 2020-11-24 10:25 | NUR ---
DR MORAN AT BEDSIDE. I SUTURE PLACED WITH SKIN GLUE ON PARACENTESIS SITE.
[2020-11-24 11:08] VITALS: BP 118/62
== END 2020-11-24 11:11 | disposition home or self-care (01) ==
LOC: ER 07:15
DX: R18.8 Other ascites (principal); Z72.89 Other problems related to lifestyle; Z88.0 Allergy status to penicillin; Z79.899 Other long term (current) drug therapy
CPT/HCPCS: 36415; 49083; 80053; 85025; 87205; 89051; 99285

== ENCOUNTER 2020-11-27 06:35 | Day surgery (SDC) | payer MEDICAID ==
[~2020-11-27] VITALS: Ht 175.3 cm; Wt 77.2 kg
[2020-11-27] VITALS (9 sets, daily range): BP systolic 97–130; BP diastolic 39–96
[2020-11-27] MEDS ORDERED: IBUP-1986 PO (07:19)
[2020-11-27] MEDS ORDERED: albumin 25% 100mL bottle x 1 IV PRN (07:30)
[2020-11-27] MEDS ORDERED: normal saline 1000ml 1,000 ML IV PRN (07:30)
== END 2020-11-27 10:30 | disposition home or self-care (01) ==
LOC: SSTAY O 06:35
PROVIDERS: ATTEND Radiology Vascular & Interventional Radiology
DX: R18.8 Other ascites (principal); D64.9 Anemia, unspecified; E87.1 Hypo-osmolality and hyponatremia; E80.6 Other disorders of bilirubin metabolism; Z98.890 Other specified postprocedural states; F17.210 Nicotine dependence, cigarettes, uncomplicated; Z72.89 Other problems related to lifestyle; Z88.0 Allergy status to penicillin; Z79.899 Other long term (current) drug therapy
CPT/HCPCS: 49083; P9047

== ENCOUNTER 2020-12-04 06:36 | Day surgery (SDC) | payer MEDICAID ==
[2020-12-04] VITALS (8 sets, daily range): BP systolic 96–123; BP diastolic 41–63
[~2020-12-04] VITALS: Ht 175.3 cm; Wt 81.7 kg
[~2020-12-04 06:36] MED LIST changes: +IBUP-1986 PO
[2020-12-04] MEDS ORDERED: albumin 25% 100mL bottle x 1 IV PRN (07:05)
[2020-12-04] MEDS ORDERED: normal saline 1000ml 1,000 ML IV PRN (07:05)
== END 2020-12-04 09:45 | disposition home or self-care (01) ==
LOC: SSTAY O 06:36
PROVIDERS: ATTEND Radiology Vascular & Interventional Radiology
DX: R18.8 Other ascites (principal); D64.9 Anemia, unspecified; E87.1 Hypo-osmolality and hyponatremia; E80.6 Other disorders of bilirubin metabolism; F17.210 Nicotine dependence, cigarettes, uncomplicated; Z72.89 Other problems related to lifestyle; Z98.890 Other specified postprocedural states; Z88.0 Allergy status to penicillin; Z79.899 Other long term (current) drug therapy
CPT/HCPCS: 49083; P9047

== ENCOUNTER 2020-12-11 06:47 | Day surgery (SDC) | payer MEDICAID ==
[~2020-12-11] VITALS: Ht 175.3 cm; Wt 83.4 kg
[2020-12-11] VITALS (10 sets, daily range): BP systolic 85–112; BP diastolic 53–65
[~2020-12-11 06:47] MED LIST changes: -THIA100T66 PO
[2020-12-11] MEDS ORDERED: normal saline 1000ml 1,000 ML IV PRN (07:05)
[2020-12-11] MEDS: albumin 25% 100mL bottle x 1 IV PRN ×2 (09:01→09:59)
== END 2020-12-11 10:55 | disposition home or self-care (01) ==
LOC: SSTAY O 06:47
PROVIDERS: ATTEND Radiology Vascular & Interventional Radiology
DX: R18.8 Other ascites (principal); D64.9 Anemia, unspecified; E87.1 Hypo-osmolality and hyponatremia; E80.6 Other disorders of bilirubin metabolism; Z98.890 Other specified postprocedural states; F17.210 Nicotine dependence, cigarettes, uncomplicated; Z72.89 Other problems related to lifestyle; Z88.0 Allergy status to penicillin; Z79.899 Other long term (current) drug therapy
CPT/HCPCS: 49083; P9047

== ENCOUNTER 2020-12-18 06:23 | Day surgery (SDC) | payer MEDICAID ==
[~2020-12-18] VITALS: Ht 175.3 cm; Wt 84.1 kg
[2020-12-18] VITALS (8 sets, daily range): BP systolic 98–117; BP diastolic 57–69
[2020-12-18] MEDS: albumin 25% 100mL bottle x 1 IV PRN ×2 (08:29→09:18)
== END 2020-12-18 10:10 | disposition home or self-care (01) ==
LOC: SSTAY O 06:23
PROVIDERS: ATTEND Radiology Vascular & Interventional Radiology
DX: R18.8 Other ascites (principal); F17.210 Nicotine dependence, cigarettes, uncomplicated; Z88.0 Allergy status to penicillin; Z79.899 Other long term (current) drug therapy; Z98.890 Other specified postprocedural states; D64.9 Anemia, unspecified
CPT/HCPCS: 49083; P9047

== ENCOUNTER 2020-12-20 09:06 | Emergency (ER) | payer MEDICAID ==
[~2020-12-20] VITALS: Ht 175.3 cm; Wt 78.6 kg
[2020-12-20 09:22] VITALS: BP_SYST 100
--- NOTE | 2020-12-20 10:28 | NUR ---
Break RN, Pt evaluated by Provider and orders placed. Pt updated on plan of care. Labs only at this time. Provider advises to wait before starting IV.
[2020-12-20 10:56] LABS: BASOPHILS % (AUTO) 0.3 % (0-1); EOSINOPHILS # (AUTO) 0.1 X10'3 (0-0.9); HEMATOCRIT 26.9 % (42.0-52.0); HEMOGLOBIN 9.4 g/dl (14.0-17.9); LYMPHOCYTES # (AUTO) 0.9 X10'3 (1.1-4.8); LYMPHOCYTES % (AUTO) 14.6 % (21-51); MEAN CORPUSCULAR HEMOGLOBIN 35.7 PG (27.0-31.0); MONOCYTES # (AUTO) 0.8 X10'3 (0-0.9); MONOCYTES % (AUTO) 12.7 % (2-12); NEUTROPHILS # (AUTO) 4.2 X10'3 (1.8-7.7); NEUTROPHILS % (AUTO) 71.4 % (42-75); PLATELET COUNT 101 X10'3 (140-440); RED BLOOD COUNT 2.64 X10'6 (4.70-6.10); WHITE BLOOD COUNT 5.9 X10'3 (4.5-11.0)
[2020-12-20 11:13] LABS: ALANINE AMINOTRANSFERASE 37 U/L (12-78); ALBUMIN/GLOBULIN RATIO 1.3 (1.1-1.5); ALKALINE PHOSPHATASE 120 IU/L (46-116); ANION GAP 9 (8-16); ASPARTATE AMINO TRANSFERASE 49 U/L (10-37); BILIRUBIN,TOTAL 2.1 MG/DL (0.1-1.0); BLOOD UREA NITROGEN 18 MG/DL (7-18); BUN/CREATININE RATIO 21.7 (5.4-32.0); CALCIUM 8.2 MG/DL (8.5-10.1); CHLORIDE 100 MMOL/L (99-107); CREATININE 0.83 MG/DL (0.60-1.10); GLUCOSE 117 MG/DL (70-104); LIPASE 321 U/L (73-393); SODIUM 129 MMOL/L (135-145); TOTAL CARBON DIOXIDE 19.7 MMOL/L (24-32); TOTAL PROTEIN 5.4 G/DL (6.4-8.2); eGFR > 90 ML/MIN
[2020-12-20 11:23] LABS: LACTIC SEPSIS 1.4 MMOL/L (0.4-2.0)
== END 2020-12-20 12:11 | disposition home or self-care (01) ==
LOC: ER 09:06
DX: S39.011A Strain of muscle, fascia and tendon of abdomen, initial encounter (principal); R18.8 Other ascites; R53.1 Weakness; R10.84 Generalized abdominal pain; Z72.89 Other problems related to lifestyle; Z88.0 Allergy status to penicillin; Z79.899 Other long term (current) drug therapy; X58.XXXA Exposure to other specified factors, initial encounter; Y93.89 Activity, other specified; Y92.89 Other specified places as the place of occurrence of the external cause; Y99.8 Other external cause status
CPT/HCPCS: 36415; 80053; 82140; 83605; 83690; 85025; 99284

== ENCOUNTER 2020-12-26 06:26 | Day surgery (SDC) | payer MEDICAID ==
[2020-12-26] VITALS (8 sets, daily range): BP systolic 90–113; BP diastolic 46–71
[~2020-12-26] VITALS: Ht 175.3 cm; Wt 85.6 kg
[2020-12-26] MEDS ORDERED: normal saline 1000ml 1,000 ML IV PRN (06:55)
[2020-12-26] MEDS: albumin 25% 100mL bottle x 1 IV PRN ×2 (08:35→09:13)
== END 2020-12-26 10:10 | disposition home or self-care (01) ==
LOC: SSTAY O 06:26
PROVIDERS: ATTEND Radiology Diagnostic Radiology
DX: R18.8 Other ascites (principal); D64.9 Anemia, unspecified; E87.1 Hypo-osmolality and hyponatremia; E80.6 Other disorders of bilirubin metabolism; Z98.890 Other specified postprocedural states; F17.210 Nicotine dependence, cigarettes, uncomplicated; Z88.0 Allergy status to penicillin; Z72.89 Other problems related to lifestyle
CPT/HCPCS: 49083; P9047

== ENCOUNTER 2021-01-01 06:20 | Day surgery (SDC) | payer MEDICAID ==
[~2021-01-01] VITALS: Ht 175.3 cm; Wt 83.1 kg
[2021-01-01] VITALS (10 sets, daily range): BP systolic 106–124; BP diastolic 52–71
[2021-01-01] MEDS ORDERED: SPIR25TA PO (06:52)
[2021-01-01] MEDS: albumin 25% 100mL bottle x 1 IV PRN ×2 (08:56→09:48)
== END 2021-01-01 10:50 | disposition home or self-care (01) ==
LOC: SSTAY O 06:20
PROVIDERS: ATTEND Radiology Diagnostic Radiology
DX: R18.8 Other ascites (principal); D64.9 Anemia, unspecified; E87.1 Hypo-osmolality and hyponatremia; Z72.89 Other problems related to lifestyle; F17.210 Nicotine dependence, cigarettes, uncomplicated; E80.6 Other disorders of bilirubin metabolism; Z98.890 Other specified postprocedural states; Z88.0 Allergy status to penicillin; Z79.899 Other long term (current) drug therapy
CPT/HCPCS: 49083; P9047

== ENCOUNTER 2021-01-09 06:12 | Day surgery (SDC) | payer MEDICAID ==
[~2021-01-09] VITALS: Ht 175.3 cm; Wt 82.6 kg
[2021-01-09] VITALS (9 sets, daily range): BP systolic 95–121; BP diastolic 53–69
[~2021-01-09 06:12] MED LIST changes: +SPIR25TA PO
[2021-01-09] MEDS ORDERED: ACET500C5 PO (06:58)
[2021-01-09] MEDS ORDERED: FURO40TA4 PO (06:58)
[2021-01-09] MEDS ORDERED: THIA100T66 PO (06:58)
[2021-01-09] MEDS: albumin 25% 100mL bottle x 1 IV PRN ×2 (08:27→09:11)
== END 2021-01-09 10:30 | disposition home or self-care (01) ==
LOC: SSTAY O 06:12
PROVIDERS: ATTEND Radiology Vascular & Interventional Radiology
DX: R18.8 Other ascites (principal); D64.9 Anemia, unspecified; E87.1 Hypo-osmolality and hyponatremia; E80.6 Other disorders of bilirubin metabolism; Z72.89 Other problems related to lifestyle; Z98.890 Other specified postprocedural states; F17.210 Nicotine dependence, cigarettes, uncomplicated; Z88.0 Allergy status to penicillin; Z79.899 Other long term (current) drug therapy
CPT/HCPCS: 49083; P9047

== ENCOUNTER 2021-01-13 14:21 | Emergency (ER) | payer MEDICAID ==
[~2021-01-13] VITALS: Ht 175.3 cm; Wt 81.8 kg
[~2021-01-13 14:21] MED LIST changes: +ACET500C5 PO; +FURO40TA4 PO; -IBUP-1986 PO; +THIA100T66 PO
[2021-01-13] MEDS ORDERED: normal saline 1000ml 1,000 ML IV ONE ×2 (16:05→17:20)
[2021-01-13 16:34] LABS: BASOPHILS % (AUTO) 0.2 % (0-1); EOSINOPHILS % (AUTO) 0.7 % (0-6); HEMATOCRIT 27.3 % (42.0-52.0); HEMOGLOBIN 9.6 g/dl (14.0-17.9); LYMPHOCYTES # (AUTO) 0.9 X10'3 (1.1-4.8); MEAN CORPUSCULAR HEMOGLOBIN 35.5 PG (27.0-31.0); MEAN CORPUSCULAR HGB CONC 35.3 g/dL (33.0-36.5); MEAN CORPUSCULAR VOLUME 100.6 FL (78-98); MEAN PLATELET VOLUME 6.9 FL (7.4-10.4); MONOCYTES # (AUTO) 0.8 X10'3 (0-0.9); MONOCYTES % (AUTO) 11.9 % (2-12); NEUTROPHILS # (AUTO) 4.9 X10'3 (1.8-7.7); NEUTROPHILS % (AUTO) 74.2 % (42-75); PLATELET COUNT 81 X10'3 (140-440); RED BLOOD COUNT 2.72 X10'6 (4.70-6.10); RED CELL DISTRIBUTION WIDTH 14.6 % (11.5-14.5); WHITE BLOOD COUNT 6.6 X10'3 (4.5-11.0)
[2021-01-13 16:49] LABS: CHLORIDE 94 MMOL/L (99-107); GLUCOSE 108 MG/DL (70-104); POTASSIUM 3.9 MMOL/L (3.5-5.1); SODIUM 126 MMOL/L (135-145)
[2021-01-13 16:50] LABS: ALANINE AMINOTRANSFERASE 40 U/L (12-78); ALBUMIN 3.1 G/DL (3.4-5.0); ALBUMIN/GLOBULIN RATIO 1.3 (1.1-1.5); ALKALINE PHOSPHATASE 102 IU/L (46-116); ANION GAP 9 (8-16); ASPARTATE AMINO TRANSFERASE 51 U/L (10-37); BILIRUBIN,TOTAL 3.2 MG/DL (0.1-1.0); BLOOD UREA NITROGEN 18 MG/DL (7-18); BUN/CREATININE RATIO 16.7 (5.4-32.0); CALCIUM 8.6 MG/DL (8.5-10.1); CREATININE 1.08 MG/DL (0.60-1.10); TOTAL CARBON DIOXIDE 22.7 MMOL/L (24-32); TOTAL PROTEIN 5.5 G/DL (6.4-8.2); eGFR 70 ML/MIN
[2021-01-13 16:54] LABS: CLARITY,URINE CLEAR (Clear); COLOR,URINE YELLOW (Yellow); GLUCOSE, URINE NEGATIVE (Neg); KETONES,URINE NEGATIVE (Neg); LEUKOCYTE ESTERASE ,URINE TRACE (Neg); NITRITES, URINE NEGATIVE (Neg); OCCULT BLOOD,URINE NEGATIVE (Neg); PROTEIN,URINE NEGATIVE (Neg)
[2021-01-13 16:54] LABS: ETHANOL < 0.010 GM/DL (0.0-0.010); TROPONIN I 0.04 NG/ML (0.0-0.05)
[2021-01-13 16:58] LABS: UA COLLECTION TYPE URINAL
[2021-01-13 16:59] LABS: BACTERIA,URINE NONE SEEN /HPF (Neg); MUCUS STRANDS NONE SEEN /LPF (Neg); RBC,URINE NONE SEEN /HPF (0-2); SQUAMOUS EPITHELIAL CELL,UR NONE SEEN /LPF (FEW)
[2021-01-13 17:13] LABS: URINE AMPHETAMINE SCREEN NEGATIVE (Neg); URINE BARBITUATE SCREEN NEGATIVE (Neg); URINE BENZODIAZEPINES SCREEN NEGATIVE (Neg); URINE CANNABINOID SCREEN NEGATIVE (Neg); URINE COCAINE SCREEN NEGATIVE (Neg); URINE METHADONE SCREEN NEGATIVE (Neg); URINE OPIATE SCREEN NEGATIVE (Neg); URINE PHENCYCLIDINE SCREEN NEGATIVE (Neg)
[2021-01-13] MEDS ORDERED: ondansetron/PF 4mg/2ml inj IV ONE (17:25)
[2021-01-13] MEDS ORDERED: meclizine 12.5mg tablet PO ONE (17:25)
[2021-01-13] MEDS ORDERED: ONDA4TAB6 PO (18:49)
[2021-01-13 18:55] VITALS: BP 102/55
== END 2021-01-13 18:57 | disposition home or self-care (01) ==
LOC: ER 14:22
DX: M79.10 Myalgia, unspecified site (principal); F17.200 Nicotine dependence, unspecified, uncomplicated; Z88.0 Allergy status to penicillin; Z72.89 Other problems related to lifestyle; Z79.899 Other long term (current) drug therapy
CPT/HCPCS: 36415; 71045; 80053; 80305; 80320; 81001; 84484; 85025; 87088; 93005; 96374; 99285; J2405; J7030; J8597

== ENCOUNTER 2021-01-16 06:18 | Day surgery (SDC) | payer MEDICAID ==
[2021-01-16] VITALS (7 sets, daily range): BP systolic 110–117; BP diastolic 63–68
[~2021-01-16] VITALS: Ht 175.3 cm; Wt 80.2 kg
[~2021-01-16 06:18] MED LIST changes: +ONDA4TAB6 PO
[2021-01-16] MEDS ORDERED: albumin 25% 100mL bottle x 1 IV PRN (06:40)
== END 2021-01-16 09:40 | disposition home or self-care (01) ==
LOC: SSTAY O 06:18
PROVIDERS: ATTEND Radiology Diagnostic Radiology
DX: R18.8 Other ascites (principal); D64.9 Anemia, unspecified; E87.1 Hypo-osmolality and hyponatremia; F17.210 Nicotine dependence, cigarettes, uncomplicated; E80.6 Other disorders of bilirubin metabolism; Z72.89 Other problems related to lifestyle; Z98.890 Other specified postprocedural states; Z88.0 Allergy status to penicillin; Z79.899 Other long term (current) drug therapy
CPT/HCPCS: 49083; P9047

== ENCOUNTER 2021-01-20 09:36 | Emergency (ER) | payer MEDICAID ==
[~2021-01-20] VITALS: Ht 175.3 cm; Wt 78.4 kg
[~2021-01-20 09:36] MED LIST changes: -ONDA4TAB6 PO
--- NOTE | 2021-01-20 10:06 | NUR ---
CRISPIN SERNA AT BEDSIDE.
[2021-01-20] MEDS ORDERED: ondansetron/PF 4mg/2ml inj IV ONE ×2 (10:15→13:20)
[2021-01-20 10:44] LABS: BASOPHILS % (AUTO) 0.2 % (0-1); EOSINOPHILS % (AUTO) 0.1 % (0-6); HEMATOCRIT 29.5 % (42.0-52.0); HEMOGLOBIN 10.5 g/dl (14.0-17.9); LYMPHOCYTES % (AUTO) 11.8 % (21-51); MEAN CORPUSCULAR HEMOGLOBIN 35.7 PG (27.0-31.0); MEAN CORPUSCULAR HGB CONC 35.5 g/dL (33.0-36.5); MEAN CORPUSCULAR VOLUME 100.6 FL (78-98); MEAN PLATELET VOLUME 7.1 FL (7.4-10.4); MONOCYTES % (AUTO) 11.9 % (2-12); NEUTROPHILS # (AUTO) 6.7 X10'3 (1.8-7.7); PLATELET COUNT 121 X10'3 (140-440); RED BLOOD COUNT 2.94 X10'6 (4.70-6.10); RED CELL DISTRIBUTION WIDTH 14.9 % (11.5-14.5); WHITE BLOOD COUNT 8.8 X10'3 (4.5-11.0)
--- NOTE | 2021-01-20 10:52 | NUR ---
PATIENT REPORTS NO RELIEF FROM ZOFRAN,PROVIDER CRISPIN MADE AWARE.
[2021-01-20 10:54] LABS: ALANINE AMINOTRANSFERASE 43 U/L (12-78); ALBUMIN 3.2 G/DL (3.4-5.0); ALBUMIN/GLOBULIN RATIO 1.2 (1.1-1.5); ALKALINE PHOSPHATASE 108 IU/L (46-116); ANION GAP 9 (8-16); ASPARTATE AMINO TRANSFERASE 65 U/L (10-37); BILIRUBIN,TOTAL 3.5 MG/DL (0.1-1.0); BLOOD UREA NITROGEN 17 MG/DL (7-18); BUN/CREATININE RATIO 14.7 (5.4-32.0); CALCIUM 8.5 MG/DL (8.5-10.1); CHLORIDE 92 MMOL/L (99-107); CREATININE 1.16 MG/DL (0.60-1.10); GLUCOSE 142 MG/DL (70-104); LIPASE 263 U/L (73-393); POTASSIUM 4.1 MMOL/L (3.5-5.1); SODIUM 124 MMOL/L (135-145); TOTAL CARBON DIOXIDE 23.3 MMOL/L (24-32); TOTAL PROTEIN 5.8 G/DL (6.4-8.2); eGFR 64 ML/MIN
[2021-01-20] MEDS ORDERED: diphenhydrAMINE 50 mg/ml inj IV ONE (10:55)
[2021-01-20] MEDS ORDERED: proCHLORperazine 10 MG/2 ml inj IV ONE (10:55)
--- NOTE | 2021-01-20 11:20 | NUR ---
patient to ct.
--- NOTE | 2021-01-20 11:25 | NUR ---
patient back in the room.
--- NOTE | 2021-01-20 13:17 | NUR ---
eric ramirez at bedside.
[2021-01-20] MEDS ORDERED: ONDA4TAB6 PO (13:41)
[2021-01-20 13:47] VITALS: BP 134/69
== END 2021-01-20 13:54 | disposition home or self-care (01) ==
LOC: ER 09:37
DX: R11.2 Nausea with vomiting, unspecified (principal); R06.02 Shortness of breath; R10.9 Unspecified abdominal pain; Z90.49 Acquired absence of other specified parts of digestive tract; Z72.89 Other problems related to lifestyle; Z88.0 Allergy status to penicillin; Z79.899 Other long term (current) drug therapy
CPT/HCPCS: 36415; 74176; 80053; 83690; 85025; 96374; 96375; 96376; 99285; J0780; J1200; J2405

== ENCOUNTER 2021-01-23 06:19 | Day surgery (SDC) | payer MEDICAID ==
[~2021-01-23] VITALS: Ht 175.3 cm; Wt 80.3 kg
[2021-01-23] VITALS (8 sets, daily range): BP systolic 103–120; BP diastolic 53–65
[~2021-01-23 06:19] MED LIST changes: +ONDA4TAB6 PO
[2021-01-23] MEDS ORDERED: albumin 25% 100mL bottle x 1 IV PRN (06:35)
== END 2021-01-23 09:40 | disposition home or self-care (01) ==
LOC: SSTAY O 06:19
PROVIDERS: ATTEND Radiology Diagnostic Radiology
DX: R18.8 Other ascites (principal); F17.210 Nicotine dependence, cigarettes, uncomplicated; Z72.89 Other problems related to lifestyle; D64.9 Anemia, unspecified; E87.1 Hypo-osmolality and hyponatremia; E80.6 Other disorders of bilirubin metabolism; Z98.890 Other specified postprocedural states; Z88.0 Allergy status to penicillin; Z79.899 Other long term (current) drug therapy
CPT/HCPCS: 49083; P9047

== ENCOUNTER 2021-01-30 05:54 | Day surgery (SDC) | payer MEDICAID ==
[~2021-01-30] VITALS: Ht 175.3 cm; Wt 82.0 kg
[~2021-01-30 05:54] MED LIST changes: -ONDA4TAB6 PO
[2021-01-30 06:18] VITALS: BP 124/66
[2021-01-30] MEDS ORDERED: albumin 25% 100mL bottle x 1 IV PRN (06:20)
[2021-01-30 08:53] VITALS: BP 107/60
[2021-01-30 09:00] VITALS: BP 102/58
[2021-01-30 09:15] VITALS: BP 103/57
[2021-01-30 09:22] VITALS: BP 105/56
[2021-01-30 09:30] VITALS: BP 108/64
== END 2021-01-30 10:03 | disposition home or self-care (01) ==
LOC: SSTAY O 05:54
PROVIDERS: ATTEND Radiology Diagnostic Radiology
DX: R18.8 Other ascites (principal); F17.210 Nicotine dependence, cigarettes, uncomplicated; Z72.89 Other problems related to lifestyle; D64.9 Anemia, unspecified; E87.1 Hypo-osmolality and hyponatremia; E80.6 Other disorders of bilirubin metabolism; Z98.890 Other specified postprocedural states; Z88.0 Allergy status to penicillin; Z79.899 Other long term (current) drug therapy
CPT/HCPCS: 49083; P9047

== ENCOUNTER 2021-02-06 06:34 | Day surgery (SDC) | payer MEDICAID ==
[2021-02-06] VITALS (8 sets, daily range): BP systolic 102–119; BP diastolic 54–66
[~2021-02-06] VITALS: Ht 175.3 cm; Wt 86.5 kg
[2021-02-06] MEDS ORDERED: normal saline 1000ml 1,000 ML IV PRN (07:00)
[2021-02-06] MEDS: albumin 25% 100mL bottle x 1 IV PRN ×2 (08:45→09:37)
== END 2021-02-06 10:20 | disposition home or self-care (01) ==
LOC: SSTAY O 06:34
PROVIDERS: ATTEND Radiology Vascular & Interventional Radiology
DX: R18.8 Other ascites (principal); F17.210 Nicotine dependence, cigarettes, uncomplicated; Z72.89 Other problems related to lifestyle; D64.9 Anemia, unspecified; E87.1 Hypo-osmolality and hyponatremia; E80.6 Other disorders of bilirubin metabolism; Z98.890 Other specified postprocedural states; Z79.899 Other long term (current) drug therapy
CPT/HCPCS: 49083; P9047

== ENCOUNTER 2021-02-13 06:40 | Day surgery (SDC) | payer MEDICAID ==
[2021-02-13] VITALS (9 sets, daily range): BP systolic 91–116; BP diastolic 47–69
[~2021-02-13] VITALS: Ht 175.3 cm; Wt 82.8 kg
[2021-02-13] MEDS ORDERED: MILK1CAP3 PO (07:27)
[2021-02-13] MEDS ORDERED: PANT40TA54 PO (07:27)
[2021-02-13] MEDS ORDERED: ONDA-103 PO (07:27)
[2021-02-13] MEDS ORDERED: DIPH25CA46 PO (07:27)
[2021-02-13] MEDS: albumin 25% 100mL bottle x 1 IV PRN ×2 (08:59→09:29)
== END 2021-02-13 10:25 | disposition home or self-care (01) ==
LOC: SSTAY O 06:40
PROVIDERS: ATTEND Radiology Vascular & Interventional Radiology
DX: R18.8 Other ascites (principal); F17.210 Nicotine dependence, cigarettes, uncomplicated; Z72.89 Other problems related to lifestyle; D64.9 Anemia, unspecified; E87.1 Hypo-osmolality and hyponatremia; E80.6 Other disorders of bilirubin metabolism; Z88.0 Allergy status to penicillin; Z79.899 Other long term (current) drug therapy
CPT/HCPCS: 49083; P9047

== ENCOUNTER 2021-02-20 07:00 | Emergency (ER) | payer MEDICAID ==
[~2021-02-20] VITALS: Ht 175.3 cm; Wt 79.7 kg
[~2021-02-20 07:00] MED LIST changes: +DIPH25CA46 PO; +MILK1CAP3 PO; +ONDA-103 PO; +PANT40TA54 PO
[2021-02-20] MEDS ORDERED: albumin (human) 25% 100 ML IV solution IV ONE (07:35)
[2021-02-20] MEDS ORDERED: LIDOcaine 1% W/epiNEPHrine 1:100,000 20ml vial SQ ONE (07:35)
--- NOTE | 2021-02-20 08:16 | NUR ---
Darya greenwood in ED - 02/20/21 at 0824 by STEPHEN [facility] CALLED, BLOOD CULTURES X2 BOTTLES FROM RIGHT ARM. GRAM POSITIVE COCCI PAIRS AND CHAINS
--- NOTE | 2021-02-20 08:17 | NUR ---
Darya greenwood in ED - 02/20/21 at 0824 by STEPHEN GERRY PETE RN AND DR. GOMEZ OF POSITIVE BLOOD CULTURES.
[2021-02-20 10:19] VITALS: BP 107/57
== END 2021-02-20 10:21 | disposition home or self-care (01) ==
LOC: ER 07:04
DX: K70.31 Alcoholic cirrhosis of liver with ascites (principal); R06.02 Shortness of breath; R19.00 Intra-abdominal and pelvic swelling, mass and lump, unspecified site; R11.2 Nausea with vomiting, unspecified; F17.200 Nicotine dependence, unspecified, uncomplicated; Z90.89 Acquired absence of other organs; Z72.89 Other problems related to lifestyle; Z88.0 Allergy status to penicillin; Z79.899 Other long term (current) drug therapy
CPT/HCPCS: 49083; 96374; 99285; P9047; 96365

== ENCOUNTER 2021-02-27 06:03 | Day surgery (SDC) | payer MEDICAID ==
[~2021-02-27] VITALS: Ht 175.3 cm; Wt 81.8 kg
[2021-02-27] MEDS ORDERED: albumin 25% 100mL bottle x 1 IV PRN (06:25)
[2021-02-27 06:30] VITALS: BP 120/67
[2021-02-27 08:25] VITALS: BP 110/61
[2021-02-27 08:30] VITALS: BP 114/52
[2021-02-27 08:45] VITALS: BP 98/65
[2021-02-27 09:00] VITALS: BP 114/58
[2021-02-27 09:15] VITALS: BP 107/58
== END 2021-02-27 09:25 | disposition home or self-care (01) ==
LOC: SSTAY O 06:03
PROVIDERS: ATTEND Radiology Vascular & Interventional Radiology
DX: R18.8 Other ascites (principal); E87.1 Hypo-osmolality and hyponatremia
CPT/HCPCS: 49083; P9047

== ENCOUNTER 2021-03-06 06:49 | Day surgery (SDC) | payer MEDICAID ==
[2021-03-06] VITALS (11 sets, daily range): BP systolic 90–121; BP diastolic 40–70
[~2021-03-06] VITALS: Ht 175.3 cm; Wt 85.5 kg
[2021-03-06] MEDS ORDERED: normal saline 1000ml 1,000 ML IV PRN (07:10)
[2021-03-06] MEDS: albumin 25% 100mL bottle x 1 IV PRN ×2 (08:46→09:22)
== END 2021-03-06 10:35 | disposition home or self-care (01) ==
LOC: SSTAY O 06:49
PROVIDERS: ATTEND Radiology Vascular & Interventional Radiology
DX: R18.8 Other ascites (principal); E87.1 Hypo-osmolality and hyponatremia; E80.6 Other disorders of bilirubin metabolism; D64.9 Anemia, unspecified; F17.210 Nicotine dependence, cigarettes, uncomplicated; Z72.89 Other problems related to lifestyle; Z98.890 Other specified postprocedural states; Z88.0 Allergy status to penicillin; Z79.899 Other long term (current) drug therapy
CPT/HCPCS: 49083; P9047

== ENCOUNTER → 2021-03-09 | Emergency (ER) | payer MEDICAID ==
[~2021-03-09] VITALS: Ht 175.3 cm; Wt 79.5 kg
[2021-03-09 15:01] VITALS: BP 110/61
== END | disposition left against medical advice (07) ==
LOC: ER 14:44
DX: T81.9XXD Unspecified complication of procedure, subsequent encounter (principal); Z53.21 Procedure and treatment not carried out due to patient leaving prior to being seen by health care provider; Y83.8 Other surgical procedures as the cause of abnormal reaction of the patient, or of later complication, without mention of misadventure at the time of the procedure

== ENCOUNTER 2021-03-13 06:48 | Day surgery (SDC) | payer MEDICAID ==
[2021-03-13] VITALS (10 sets, daily range): BP systolic 93–117; BP diastolic 43–63
[~2021-03-13] VITALS: Ht 175.3 cm; Wt 84.6 kg
[~2021-03-13 06:48] MED LIST changes: +DIPH-1055 PO; -DIPH25CA46 PO
[2021-03-13] MEDS: albumin 25% 100mL bottle x 1 IV PRN ×2 (09:05→09:49)
== END 2021-03-13 10:50 | disposition home or self-care (01) ==
LOC: SSTAY O 06:48
PROVIDERS: ATTEND Radiology Diagnostic Radiology
DX: R18.8 Other ascites (principal); F17.210 Nicotine dependence, cigarettes, uncomplicated; Z72.89 Other problems related to lifestyle; D64.9 Anemia, unspecified; E87.1 Hypo-osmolality and hyponatremia; E80.6 Other disorders of bilirubin metabolism; Z88.0 Allergy status to penicillin; Z79.899 Other long term (current) drug therapy
CPT/HCPCS: 49083; P9047

== ENCOUNTER 2021-03-20 06:24 | Day surgery (SDC) | payer MEDICAID ==
[2021-03-20] VITALS (8 sets, daily range): BP systolic 97–115; BP diastolic 46–65
[~2021-03-20] VITALS: Ht 175.3 cm; Wt 84.0 kg
[2021-03-20] MEDS: albumin 25% 100mL bottle x 1 IV PRN ×2 (09:10→09:53)
== END 2021-03-20 10:50 | disposition home or self-care (01) ==
LOC: SSTAY O 06:24
PROVIDERS: ATTEND Radiology Vascular & Interventional Radiology
DX: R18.8 Other ascites (principal); F17.210 Nicotine dependence, cigarettes, uncomplicated; D64.9 Anemia, unspecified; E87.1 Hypo-osmolality and hyponatremia; E80.6 Other disorders of bilirubin metabolism; Z98.890 Other specified postprocedural states; Z88.0 Allergy status to penicillin; Z79.899 Other long term (current) drug therapy
CPT/HCPCS: 49083; P9047

== ENCOUNTER 2021-03-27 06:14 | Day surgery (SDC) | payer MEDICAID ==
[~2021-03-27] VITALS: Ht 175.3 cm; Wt 82.1 kg
[2021-03-27] VITALS (7 sets, daily range): BP systolic 106–122; BP diastolic 53–70
[2021-03-27] MEDS ORDERED: albumin 25% 100mL bottle x 1 IV PRN (06:40)
== END 2021-03-27 10:20 | disposition home or self-care (01) ==
LOC: SSTAY O 06:14
PROVIDERS: ATTEND Radiology Diagnostic Radiology
DX: R18.8 Other ascites (principal); Z88.0 Allergy status to penicillin; F17.210 Nicotine dependence, cigarettes, uncomplicated; Z72.89 Other problems related to lifestyle; D64.9 Anemia, unspecified; E87.1 Hypo-osmolality and hyponatremia; E80.6 Other disorders of bilirubin metabolism; Z98.890 Other specified postprocedural states
CPT/HCPCS: 49083; P9047

== ENCOUNTER 2021-04-03 06:39 | Day surgery (SDC) | payer MEDICAID ==
[2021-04-03] VITALS (9 sets, daily range): BP systolic 98–114; BP diastolic 51–61
[~2021-04-03] VITALS: Ht 175.3 cm; Wt 81.7 kg
[2021-04-03] MEDS: albumin 25% 100mL bottle x 1 IV PRN ×2 (08:39→10:00)
== END 2021-04-03 10:50 | disposition home or self-care (01) ==
LOC: SSTAY O 06:39
PROVIDERS: ATTEND Radiology Diagnostic Radiology
DX: R18.8 Other ascites (principal); F17.210 Nicotine dependence, cigarettes, uncomplicated; Z72.89 Other problems related to lifestyle; D64.9 Anemia, unspecified; E87.1 Hypo-osmolality and hyponatremia; E80.6 Other disorders of bilirubin metabolism; Z98.890 Other specified postprocedural states; Z79.899 Other long term (current) drug therapy
CPT/HCPCS: 49083; P9047

== ENCOUNTER 2021-04-10 07:04 | Day surgery (SDC) | payer MEDICAID ==
[2021-04-10] VITALS (8 sets, daily range): BP systolic 100–112; BP diastolic 55–66
[~2021-04-10] VITALS: Ht 175.3 cm; Wt 82.1 kg
[2021-04-10] MEDS ORDERED: normal saline 1000ml 1,000 ML IV PRN (07:30)
[2021-04-10] MEDS: albumin 25% 100mL bottle x 1 IV PRN ×2 (09:23→09:52)
== END 2021-04-10 10:40 | disposition home or self-care (01) ==
LOC: SSTAY O 07:04
PROVIDERS: ATTEND Radiology Diagnostic Radiology
DX: R18.8 Other ascites (principal); E87.1 Hypo-osmolality and hyponatremia; D64.9 Anemia, unspecified; E80.6 Other disorders of bilirubin metabolism; F17.210 Nicotine dependence, cigarettes, uncomplicated; Z72.89 Other problems related to lifestyle; Z98.890 Other specified postprocedural states; Z79.899 Other long term (current) drug therapy
CPT/HCPCS: 49083; P9047

== ENCOUNTER 2021-04-17 06:27 | Day surgery (SDC) | payer MEDICAID ==
[~2021-04-17] VITALS: Ht 175.3 cm; Wt 82.2 kg
[2021-04-17] MEDS ORDERED: normal saline 1000ml 1,000 ML IV PRN (06:50)
[2021-04-17] MEDS ORDERED: albumin 25% 100mL bottle x 1 IV PRN (06:50)
[2021-04-17 06:58] VITALS: BP 118/63
[2021-04-17 08:59] VITALS: BP 115/65
[2021-04-17 09:15] VITALS: BP 110/59
[2021-04-17 09:30] VITALS: BP 108/58
[2021-04-17 09:45] VITALS: BP 108/56
[2021-04-17 09:55] VITALS: BP 110/64
== END 2021-04-17 09:55 | disposition home or self-care (01) ==
LOC: SSTAY O 06:27
PROVIDERS: ATTEND Radiology Vascular & Interventional Radiology
DX: R18.8 Other ascites (principal)
CPT/HCPCS: 49083; P9047

== ENCOUNTER 2021-04-24 06:21 | Day surgery (SDC) | payer MEDICAID ==
[2021-04-24] VITALS (10 sets, daily range): BP systolic 94–121; BP diastolic 51–74
[~2021-04-24] VITALS: Ht 175.3 cm; Wt 82.1 kg
[2021-04-24] MEDS ORDERED: normal saline 1000ml 1,000 ML IV PRN (07:00)
[2021-04-24] MEDS: albumin 25% 100mL bottle x 1 IV PRN ×2 (09:04→09:46)
== END 2021-04-24 11:00 | disposition home or self-care (01) ==
LOC: SSTAY O 06:21
PROVIDERS: ATTEND Radiology Vascular & Interventional Radiology
DX: R18.8 Other ascites (principal); R14.0 Abdominal distension (gaseous); Z72.89 Other problems related to lifestyle; F17.210 Nicotine dependence, cigarettes, uncomplicated; D64.9 Anemia, unspecified; E87.1 Hypo-osmolality and hyponatremia; E80.6 Other disorders of bilirubin metabolism; Z98.890 Other specified postprocedural states; Z88.0 Allergy status to penicillin; Z79.899 Other long term (current) drug therapy
CPT/HCPCS: 49083; P9047

== ENCOUNTER 2021-05-01 06:29 | Day surgery (SDC) | payer MEDICAID ==
[2021-05-01] VITALS (8 sets, daily range): BP systolic 106–122; BP diastolic 58–81
[~2021-05-01] VITALS: Ht 175.3 cm; Wt 80.9 kg
[2021-05-01] MEDS ORDERED: albumin 25% 100mL bottle x 1 IV PRN (06:50)
== END 2021-05-01 09:40 | disposition home or self-care (01) ==
LOC: SSTAY O 06:29
PROVIDERS: ATTEND Radiology Vascular & Interventional Radiology
DX: R18.8 Other ascites (principal); R14.0 Abdominal distension (gaseous); D64.9 Anemia, unspecified; E87.1 Hypo-osmolality and hyponatremia; E80.6 Other disorders of bilirubin metabolism; F17.210 Nicotine dependence, cigarettes, uncomplicated; Z98.890 Other specified postprocedural states; Z72.89 Other problems related to lifestyle; Z88.0 Allergy status to penicillin
CPT/HCPCS: 49083; P9047

== ENCOUNTER 2021-05-08 06:29 | Day surgery (SDC) | payer MEDICAID ==
[~2021-05-08] VITALS: Ht 175.3 cm; Wt 79.9 kg
[2021-05-08] MEDS ORDERED: albumin 25% 100mL bottle x 1 IV PRN (06:55)
[2021-05-08 06:57] VITALS: BP 114/62
[2021-05-08 08:30] VITALS: BP 121/68
[2021-05-08 08:45] VITALS: BP 112/82
[2021-05-08 09:00] VITALS: BP 112/60
[2021-05-08 09:15] VITALS: BP 100/67
[2021-05-08 09:30] VITALS: BP 111/60
== END 2021-05-08 09:45 | disposition home or self-care (01) ==
LOC: SSTAY O 06:29
PROVIDERS: ATTEND Radiology Vascular & Interventional Radiology
DX: R18.8 Other ascites (principal); R14.0 Abdominal distension (gaseous); F17.210 Nicotine dependence, cigarettes, uncomplicated; D64.9 Anemia, unspecified; E87.1 Hypo-osmolality and hyponatremia; E80.6 Other disorders of bilirubin metabolism; Z98.890 Other specified postprocedural states; Z79.899 Other long term (current) drug therapy; Z72.89 Other problems related to lifestyle; Z88.0 Allergy status to penicillin
CPT/HCPCS: 49083; P9047

== ENCOUNTER 2021-05-17 08:02 | Day surgery (SDC) | payer MEDICAID ==
[~2021-05-17] VITALS: Ht 175.3 cm; Wt 82.9 kg
[2021-05-17] MEDS ORDERED: albumin 25% 100mL bottle x 1 IV PRN (08:20)
[2021-05-17] MEDS ORDERED: LIDOcaine 1% (10mg/ml) 2ml vial ONE (08:20)
[2021-05-17] MEDS ORDERED: normal saline 1000ml 1,000 ML IV PRN (08:25)
[2021-05-17 09:12] VITALS: BP 111/69
[2021-05-17 09:22] VITALS: BP 111/64
[2021-05-17 09:24] VITALS: BP 111/64
[2021-05-17 09:37] VITALS: BP 94/48
[2021-05-17 09:54] VITALS: BP 107/64
[2021-05-17 10:07] VITALS: BP 104/64
== END 2021-05-17 10:30 | disposition home or self-care (01) ==
LOC: SSTAY O 08:02
PROVIDERS: ATTEND Radiology Vascular & Interventional Radiology
DX: K70.31 Alcoholic cirrhosis of liver with ascites (principal); E87.1 Hypo-osmolality and hyponatremia; D64.9 Anemia, unspecified; E80.6 Other disorders of bilirubin metabolism; Z88.0 Allergy status to penicillin; Z98.890 Other specified postprocedural states; F17.210 Nicotine dependence, cigarettes, uncomplicated; Z72.89 Other problems related to lifestyle; Z79.899 Other long term (current) drug therapy
CPT/HCPCS: 49083; J2001; P9047

== ENCOUNTER 2021-05-24 06:00 | Day surgery (SDC) | payer MEDICAID ==
[~2021-05-24] VITALS: Ht 175.3 cm; Wt 82.9 kg
[2021-05-24] VITALS (8 sets, daily range): BP systolic 101–121; BP diastolic 51–68
[2021-05-24] MEDS ORDERED: albumin 25% 100mL bottle x 1 IV PRN (06:35)
[2021-05-24] MEDS ORDERED: TRAZ-251 PO (06:38)
== END 2021-05-24 09:50 | disposition home or self-care (01) ==
LOC: SSTAY O 06:00
PROVIDERS: ATTEND Radiology Vascular & Interventional Radiology
DX: K70.31 Alcoholic cirrhosis of liver with ascites (principal); D64.9 Anemia, unspecified; E87.1 Hypo-osmolality and hyponatremia; E80.6 Other disorders of bilirubin metabolism; Z98.890 Other specified postprocedural states; Z88.0 Allergy status to penicillin; F17.210 Nicotine dependence, cigarettes, uncomplicated; Z72.89 Other problems related to lifestyle; Z79.899 Other long term (current) drug therapy
CPT/HCPCS: 49083; P9047

== ENCOUNTER 2021-06-01 06:13 | Day surgery (SDC) | payer MEDICAID ==
[~2021-06-01] VITALS: Ht 193 cm; Wt 83.2 kg
[~2021-06-01 06:13] MED LIST changes: -DIPH-1055 PO; -MILK1CAP3 PO; -ONDA-103 PO; +TRAZ-251 PO
[2021-06-01 06:35] VITALS: BP 115/59
[2021-06-01] MEDS ORDERED: albumin 25% 100mL bottle x 1 IV PRN (06:35)
[2021-06-01] MEDS ORDERED: normal saline 1000ml 1,000 ML IV PRN (06:35)
[2021-06-01 08:20] VITALS: BP 119/62
[2021-06-01 08:35] VITALS: BP 105/56
[2021-06-01 08:50] VITALS: BP 111/57
[2021-06-01 09:05] VITALS: BP 95/54
[2021-06-01 09:20] VITALS: BP 107/52
== END 2021-06-01 09:46 | disposition home or self-care (01) ==
LOC: SSTAY O 06:13
PROVIDERS: ATTEND Radiology Vascular & Interventional Radiology
DX: K70.31 Alcoholic cirrhosis of liver with ascites (principal); D64.9 Anemia, unspecified; E87.1 Hypo-osmolality and hyponatremia; E80.6 Other disorders of bilirubin metabolism; F17.210 Nicotine dependence, cigarettes, uncomplicated; Z98.890 Other specified postprocedural states; Z72.89 Other problems related to lifestyle; Z88.0 Allergy status to penicillin; Z79.899 Other long term (current) drug therapy
CPT/HCPCS: 49083; P9047

== ENCOUNTER 2021-06-08 06:39 | Day surgery (SDC) | payer MEDICAID ==
[~2021-06-08] VITALS: Ht 175.3 cm; Wt 79.9 kg
[2021-06-08] MEDS ORDERED: albumin 25% 100mL bottle x 1 IV PRN (07:00)
[2021-06-08 07:47] VITALS: BP 99/56
== END 2021-06-08 08:15 | disposition home or self-care (01) ==
LOC: SSTAY O 06:39
PROVIDERS: ATTEND Radiology Vascular & Interventional Radiology
DX: K70.31 Alcoholic cirrhosis of liver with ascites (principal); Z53.8 Procedure and treatment not carried out for other reasons; D64.9 Anemia, unspecified; E87.1 Hypo-osmolality and hyponatremia; E80.6 Other disorders of bilirubin metabolism; Z98.890 Other specified postprocedural states; F17.210 Nicotine dependence, cigarettes, uncomplicated; Z72.89 Other problems related to lifestyle; Z88.0 Allergy status to penicillin; Z79.899 Other long term (current) drug therapy
CPT/HCPCS: 76705

== ENCOUNTER 2021-06-12 07:50 | Day surgery (SDC) | payer MEDICAID ==
[2021-06-12] VITALS (8 sets, daily range): BP systolic 106–121; BP diastolic 47–65
[~2021-06-12] VITALS: Ht 175.3 cm; Wt 81.6 kg
[2021-06-12] MEDS ORDERED: albumin 25% 100mL bottle x 1 IV PRN (08:20)
== END 2021-06-12 11:05 | disposition home or self-care (01) ==
LOC: SSTAY O 07:50
PROVIDERS: ATTEND Radiology Vascular & Interventional Radiology
DX: K70.31 Alcoholic cirrhosis of liver with ascites (principal); F17.210 Nicotine dependence, cigarettes, uncomplicated; Z72.89 Other problems related to lifestyle; D64.9 Anemia, unspecified; E87.1 Hypo-osmolality and hyponatremia; E80.6 Other disorders of bilirubin metabolism; Z79.899 Other long term (current) drug therapy
CPT/HCPCS: 49083; P9047

== ENCOUNTER 2021-06-22 06:24 | Day surgery (SDC) | payer MEDICAID ==
[~2021-06-22] VITALS: Ht 175.3 cm; Wt 80.6 kg
[~2021-06-22 06:24] MED LIST changes: -THIA100T66 PO
[2021-06-22 06:48] VITALS: BP 111/62
[2021-06-22] MEDS ORDERED: albumin 25% 100mL bottle x 1 IV PRN (06:50)
[2021-06-22 08:40] VITALS: BP 117/62
[2021-06-22 08:55] VITALS: BP 111/64
[2021-06-22 09:10] VITALS: BP 104/58
== END 2021-06-22 09:20 | disposition home or self-care (01) ==
LOC: SSTAY O 06:24
PROVIDERS: ATTEND Preventive Medicine Aerospace Medicine
DX: K70.31 Alcoholic cirrhosis of liver with ascites (principal); D64.9 Anemia, unspecified; E87.1 Hypo-osmolality and hyponatremia; E80.6 Other disorders of bilirubin metabolism; F17.210 Nicotine dependence, cigarettes, uncomplicated; Z72.89 Other problems related to lifestyle; Z79.899 Other long term (current) drug therapy
CPT/HCPCS: 49083

== ENCOUNTER 2021-07-06 06:46 | Day surgery (SDC) | payer MEDICAID ==
[~2021-07-06] VITALS: Ht 175.3 cm; Wt 80.9 kg
[2021-07-06 07:05] VITALS: BP 130/69
[2021-07-06] MEDS ORDERED: FURO40TA4 PO (07:09)
[2021-07-06] MEDS ORDERED: SPIR50TA5 PO (07:11)
[2021-07-06] MEDS ORDERED: albumin 25% 100mL bottle x 1 IV PRN (07:20)
--- NOTE | 2021-07-06 09:05 | NUR ---
Ultrasound performed by KAREEM Mckinney and not enough fluid visualized to drain. Patient discharged with stable VS. A/O x 4 and ambulatory.
== END 2021-07-06 09:05 | disposition home or self-care (01) ==
LOC: SSTAY O 06:46
PROVIDERS: ATTEND Radiology Diagnostic Radiology
DX: K70.31 Alcoholic cirrhosis of liver with ascites (principal); Z53.8 Procedure and treatment not carried out for other reasons; D64.9 Anemia, unspecified; E87.1 Hypo-osmolality and hyponatremia; E80.6 Other disorders of bilirubin metabolism; Z98.890 Other specified postprocedural states; F17.210 Nicotine dependence, cigarettes, uncomplicated; Z72.89 Other problems related to lifestyle; Z88.0 Allergy status to penicillin; Z79.899 Other long term (current) drug therapy
CPT/HCPCS: 76705

== ENCOUNTER 2021-08-06 14:49 | Outpatient (CLI) | payer MEDICAID ==
[~2021-08-06 14:49] MED LIST changes: -SPIR25TA PO; +SPIR50TA5 PO
== END 2021-08-06 23:59 | disposition home or self-care (01) ==
LOC: CARD DIAG 14:49
DX: Z01.818 Encounter for other preprocedural examination (principal); Z01.810 Encounter for preprocedural cardiovascular examination; I07.1 Rheumatic tricuspid insufficiency; K74.69 Other cirrhosis of liver
CPT/HCPCS: 93306

== ENCOUNTER 2021-08-17 08:08 | Day surgery (SDC) | payer MEDICAID ==
[2021-08-17] VITALS (12 sets, daily range): BP systolic 114–133; BP diastolic 60–80
[~2021-08-17] VITALS: Ht 175.3 cm; Wt 80.3 kg
[2021-08-17] MEDS ORDERED: albumin 25% 100mL bottle x 1 IV PRN (08:30)
[2021-08-17] MEDS ORDERED: LIDOcaine 1% (10mg/ml) 2ml vial ONE (10:03)
== END 2021-08-17 11:55 | disposition home or self-care (01) ==
LOC: SSTAY O 08:08
PROVIDERS: ATTEND Radiology Vascular & Interventional Radiology
DX: R18.8 Other ascites (principal); F17.210 Nicotine dependence, cigarettes, uncomplicated; D64.9 Anemia, unspecified; E87.1 Hypo-osmolality and hyponatremia; E80.6 Other disorders of bilirubin metabolism; Z72.89 Other problems related to lifestyle; Z88.0 Allergy status to penicillin; Z79.899 Other long term (current) drug therapy
CPT/HCPCS: 49083; J2001; P9047

== ENCOUNTER 2021-09-06 06:39 | Day surgery (SDC) | payer MEDICAID ==
[~2021-09-06] VITALS: Ht 175.3 cm; Wt 77.6 kg
[2021-09-06] VITALS (10 sets, daily range): BP systolic 115–129; BP diastolic 60–73
[~2021-09-06 06:39] MED LIST changes: -TRAZ-251 PO
[2021-09-06] MEDS ORDERED: normal saline 1000ml 1,000 ML IV PRN (07:00)
[2021-09-06] MEDS ORDERED: albumin 25% 100mL bottle x 1 IV PRN (07:00)
[2021-09-06] MEDS ORDERED: MELA5TAB12 PO (07:49)
== END 2021-09-06 11:35 | disposition home or self-care (01) ==
LOC: SSTAY O 06:39
PROVIDERS: ATTEND Preventive Medicine Aerospace Medicine
DX: K70.31 Alcoholic cirrhosis of liver with ascites (principal); D64.9 Anemia, unspecified; E87.1 Hypo-osmolality and hyponatremia; E80.6 Other disorders of bilirubin metabolism; F17.210 Nicotine dependence, cigarettes, uncomplicated; Z88.0 Allergy status to penicillin; Z72.89 Other problems related to lifestyle; Z98.890 Other specified postprocedural states; Z79.899 Other long term (current) drug therapy
CPT/HCPCS: 32555; 49083; P9047

== ENCOUNTER 2021-09-21 08:18 | Outpatient (CLI) | payer MEDICAID ==
[~2021-09-21 08:18] MED LIST changes: +MELA5TAB12 PO
== END 2021-09-21 23:59 | disposition home or self-care (01) ==
LOC: RT 08:18
PROVIDERS: ATTEND Family Medicine
DX: R94.2 Abnormal results of pulmonary function studies (principal); K70.31 Alcoholic cirrhosis of liver with ascites
CPT/HCPCS: 94010; 94727; 94729

== ENCOUNTER 2021-10-22 07:12 | Day surgery (SDC) | payer MEDICAID ==
[~2021-10-22] VITALS: Ht 175.3 cm; Wt 75.0 kg
[2021-10-22] MEDS ORDERED: albumin 25% 100mL bottle x 1 IV PRN (07:40)
[2021-10-22 08:01] VITALS: BP 125/66
[2021-10-22] MEDS ORDERED: LIDOcaine 1% 30ml preserv. free vial SQ STA (08:19)
[2021-10-22 09:20] VITALS: BP 118/58
[2021-10-22 09:30] VITALS: BP 113/62
[2021-10-22 09:45] VITALS: BP 137/74
[2021-10-22 10:00] VITALS: BP 112/59
== END 2021-10-22 10:10 | disposition home or self-care (01) ==
LOC: SSTAY O 07:12
PROVIDERS: ATTEND Preventive Medicine Aerospace Medicine
DX: J90 Pleural effusion, not elsewhere classified (principal); R18.8 Other ascites; R14.0 Abdominal distension (gaseous); D64.9 Anemia, unspecified; E87.1 Hypo-osmolality and hyponatremia; E80.6 Other disorders of bilirubin metabolism; Z98.890 Other specified postprocedural states; Z87.891 Personal history of nicotine dependence; Z72.89 Other problems related to lifestyle; Z88.0 Allergy status to penicillin; Z79.899 Other long term (current) drug therapy
CPT/HCPCS: 32555; 76705

== ENCOUNTER 2021-11-01 07:23 | Day surgery (SDC) | payer MEDICAID ==
[~2021-11-01] VITALS: Ht 172.7 cm; Wt 76.7 kg
[2021-11-01] MEDS ORDERED: albumin 25% 100mL bottle x 1 IV PRN (08:00)
[2021-11-01 08:19] VITALS: BP 116/63
[2021-11-01 09:31] VITALS: BP 123/60
[2021-11-01 09:45] VITALS: BP 119/72
[2021-11-01 09:52] VITALS: BP 120/63
[2021-11-01 09:55] VITALS: BP 122/55
[2021-11-01 10:00] VITALS: BP 111/62
== END 2021-11-01 10:15 | disposition home or self-care (01) ==
LOC: SSTAY O 07:23
PROVIDERS: ATTEND Preventive Medicine Aerospace Medicine
DX: J90 Pleural effusion, not elsewhere classified (principal); D64.9 Anemia, unspecified; E87.1 Hypo-osmolality and hyponatremia; E80.6 Other disorders of bilirubin metabolism; Z72.89 Other problems related to lifestyle; F17.210 Nicotine dependence, cigarettes, uncomplicated; Z98.890 Other specified postprocedural states; Z79.899 Other long term (current) drug therapy
CPT/HCPCS: 32555

== ENCOUNTER 2021-11-16 07:23 | Day surgery (SDC) | payer MEDICAID ==
[~2021-11-16] VITALS: Ht 172.7 cm; Wt 74.3 kg
[~2021-11-16 07:23] MED LIST changes: +LIDOcaine 1% 30ml preserv. free vial SQ STA
[2021-11-16] MEDS ORDERED: albumin 25% 100mL bottle x 1 IV PRN (07:40)
[2021-11-16 08:14] VITALS: BP 122/70
[2021-11-16 09:00] VITALS: BP 121/69
[2021-11-16 09:15] VITALS: BP 120/65
[2021-11-16 09:30] VITALS: BP 117/63
[2021-11-16 09:45] VITALS: BP 122/62
== END 2021-11-16 09:45 | disposition home or self-care (01) ==
LOC: SSTAY O 07:23
PROVIDERS: ATTEND Radiology Vascular & Interventional Radiology
DX: J90 Pleural effusion, not elsewhere classified (principal); E87.1 Hypo-osmolality and hyponatremia; E80.6 Other disorders of bilirubin metabolism; Z98.890 Other specified postprocedural states; Z72.89 Other problems related to lifestyle; Z87.891 Personal history of nicotine dependence; Z79.899 Other long term (current) drug therapy
CPT/HCPCS: 32555

== ENCOUNTER 2022-01-21 06:30 | Day surgery (SDC) | payer MEDICAID ==
[~2022-01-21] VITALS: Ht 175.3 cm; Wt 73.4 kg
[2022-01-21 06:11] VITALS: BP 109/66
[~2022-01-21 06:30] MED LIST changes: -LIDOcaine 1% 30ml preserv. free vial SQ STA
[2022-01-21] MEDS ORDERED: normal saline 1000ml 1,000 ML IV PRN (06:50)
[2022-01-21] MEDS ORDERED: THIA100T66 PO (07:09)
[2022-01-21] MEDS ORDERED: NICO-630 (07:09)
[2022-01-21] MEDS ORDERED: MILK150C2 PO (07:14)
[2022-01-21 08:56] LABS: BASOPHILS % (AUTO) 0.7 % (0-1); EOSINOPHILS # (AUTO) 0.2 X10'3 (0-0.9); EOSINOPHILS % (AUTO) 3.7 % (0-6); HEMATOCRIT 35.4 % (42.0-52.0); HEMOGLOBIN 12.2 g/dl (14.0-17.9); LYMPHOCYTES % (AUTO) 15.7 % (21-51); MEAN CORPUSCULAR HEMOGLOBIN 32.1 PG (27.0-31.0); MEAN CORPUSCULAR HGB CONC 34.5 g/dL (33.0-36.5); MEAN CORPUSCULAR VOLUME 93.1 FL (78-98); MONOCYTES # (AUTO) 0.9 X10'3 (0-0.9); MONOCYTES % (AUTO) 14.8 % (2-12); NEUTROPHILS # (AUTO) 4.2 X10'3 (1.8-7.7); NEUTROPHILS % (AUTO) 65.1 % (42-75); PLATELET COUNT 87 X10'3 (140-440); RED CELL DISTRIBUTION WIDTH 15.4 % (11.5-14.5); WHITE BLOOD COUNT 6.4 X10'3 (4.5-11.0)
--- NOTE | 2022-01-21 09:30 | NUR ---
Pt left unit for procedure
[2022-01-21] MEDS ORDERED: midazolam 1 mg/ML 2ml injection ONE ×2 (10:10→10:38)
[2022-01-21] MEDS ORDERED: heparin sodium, porcine/PF 100unit/ml 5ML syringe ONE (10:10)
[2022-01-21] MEDS ORDERED: fentaNYL/PF 50MCG/1 ML 2ML syringe ONE (10:11)
[2022-01-21] MEDS ORDERED: LIDOcaine 1% w/EPI 1:100,000 30ml vial (MDV) ONE (10:19)
[2022-01-21 11:00] VITALS: BP 107/73
[2022-01-21 11:15] VITALS: BP 101/70
[2022-01-21 11:30] VITALS: BP 109/49
[2022-01-21 11:45] VITALS: BP 114/56
== END 2022-01-21 11:55 | disposition home or self-care (01) ==
LOC: SSTAY O 06:30
PROVIDERS: ATTEND Preventive Medicine Aerospace Medicine
DX: C22.0 Liver cell carcinoma (principal); Z79.899 Other long term (current) drug therapy
CPT/HCPCS: 36415; 36561; 76937; 77001; 85025; 99152; 99153; C1769; C1788; C1894; J1642; J2250; J3010; J3490

== ENCOUNTER 2022-02-13 12:35 | Emergency (ER) | payer MEDICAID ==
[~2022-02-13] VITALS: Ht 175.3 cm; Wt 72.7 kg
[~2022-02-13 12:35] MED LIST changes: -MELA5TAB12 PO; +MILK150C2 PO; +NICO-630; +THIA100T66 PO
[2022-02-13 13:20] LABS: BASOPHILS % (AUTO) 0.5 % (0-1); EOSINOPHILS # (AUTO) 0.1 X10'3 (0-0.9); EOSINOPHILS % (AUTO) 0.8 % (0-6); HEMATOCRIT 38.3 % (42.0-52.0); HEMOGLOBIN 13.4 g/dl (14.0-17.9); LYMPHOCYTES # (AUTO) 0.9 X10'3 (1.1-4.8); LYMPHOCYTES % (AUTO) 13.4 % (21-51); MEAN CORPUSCULAR HEMOGLOBIN 31.7 PG (27.0-31.0); MEAN CORPUSCULAR HGB CONC 35.1 g/dL (33.0-36.5); MEAN CORPUSCULAR VOLUME 90.4 FL (78-98); MONOCYTES # (AUTO) 0.8 X10'3 (0-0.9); MONOCYTES % (AUTO) 11.8 % (2-12); NEUTROPHILS # (AUTO) 4.8 X10'3 (1.8-7.7); NEUTROPHILS % (AUTO) 73.5 % (42-75); PLATELET COUNT 97 X10'3 (140-440); RED BLOOD COUNT 4.24 X10'6 (4.70-6.10); RED CELL DISTRIBUTION WIDTH 16.3 % (11.5-14.5); WHITE BLOOD COUNT 6.5 X10'3 (4.5-11.0)
[2022-02-13 13:36] LABS: ALANINE AMINOTRANSFERASE 147 U/L (12-78); ALBUMIN 2.7 G/DL (3.4-5.0); ALKALINE PHOSPHATASE 132 IU/L (46-116); ANION GAP 11 (8-16); ASPARTATE AMINO TRANSFERASE 153 U/L (10-37); BILIRUBIN,TOTAL 3.6 MG/DL (0.1-1.0); BLOOD UREA NITROGEN 18 MG/DL (7-18); BUN/CREATININE RATIO 18.2 (5.4-32.0); CALCIUM 8.1 MG/DL (8.5-10.1); CHLORIDE 93 MMOL/L (99-107); CREATININE 0.99 MG/DL (0.60-1.10); GLUCOSE 104 MG/DL (70-104); POTASSIUM 4.7 MMOL/L (3.5-5.1); SODIUM 128 MMOL/L (135-145); TOTAL CARBON DIOXIDE 23.9 MMOL/L (24-32); TOTAL PROTEIN 5.4 G/DL (6.4-8.2); eGFR 77 ML/MIN
[2022-02-13 13:41] LABS: ANISOCYTOSIS 1+; PLATELET ESTIMATE DECREASED
[2022-02-13 13:42] LABS: BURR CELLS 2+; ELLIPTOCYTES 1+; SCHISTOCYTES FEW
[2022-02-13] MEDS ORDERED: LIDOcaine 1% 30ml preserv. free vial SQ STA (15:03)
[2022-02-13] MEDS ORDERED: LORazepam 1 MG tablet PO ONE (15:55)
[2022-02-13 16:48] VITALS: BP 127/67
== END 2022-02-13 16:53 | disposition home or self-care (01) ==
LOC: ER 12:35
DX: J90 Pleural effusion, not elsewhere classified (principal); R06.02 Shortness of breath; Z85.9 Personal history of malignant neoplasm, unspecified; Z90.89 Acquired absence of other organs; Z72.89 Other problems related to lifestyle; Z88.0 Allergy status to penicillin; Z79.899 Other long term (current) drug therapy
CPT/HCPCS: 32555; 36415; 71045; 80053; 83880; 85008; 85025; 85610; 99285

== ENCOUNTER 2022-03-07 07:06 | Day surgery (SDC) | payer MEDICAID ==
[~2022-03-07] VITALS: Ht 175.3 cm; Wt 72.3 kg
[~2022-03-07 07:06] MED LIST changes: +LIDOcaine 1%/PF 5ML 10 MG/ML VIAL IJ ONE
[2022-03-07 07:36] VITALS: BP 118/66
[2022-03-07 09:10] VITALS: BP 111/62
[2022-03-07 09:25] VITALS: BP 116/64
[2022-03-07 09:40] VITALS: BP 126/64
[2022-03-07 09:55] VITALS: BP 113/65
== END 2022-03-07 10:03 | disposition home or self-care (01) ==
LOC: SSTAY O 07:06
PROVIDERS: ATTEND Radiology Vascular & Interventional Radiology
DX: J90 Pleural effusion, not elsewhere classified (principal); K70.31 Alcoholic cirrhosis of liver with ascites; D64.9 Anemia, unspecified; E87.1 Hypo-osmolality and hyponatremia; E80.6 Other disorders of bilirubin metabolism; Z85.05 Personal history of malignant neoplasm of liver; Z87.891 Personal history of nicotine dependence; Z98.890 Other specified postprocedural states; Z88.0 Allergy status to penicillin; Z79.899 Other long term (current) drug therapy
CPT/HCPCS: 32555; J3490

== ENCOUNTER 2022-03-21 08:45 | Day surgery (SDC) | payer MEDICAID ==
[~2022-03-21] VITALS: Ht 175.3 cm; Wt 73.0 kg
[~2022-03-21 08:45] MED LIST changes: -LIDOcaine 1%/PF 5ML 10 MG/ML VIAL IJ ONE; -PANT40TA54 PO
[2022-03-21 08:54] VITALS: BP 142/77
[2022-03-21] MEDS ORDERED: albumin 25% 100mL bottle x 1 IV PRN (09:05)
[2022-03-21] MEDS ORDERED: IBUP-1984 PO (09:07)
[2022-03-21] MEDS ORDERED: LIDOcaine 1%/PF 5ML 10 MG/ML VIAL IM ONE (09:45)
[2022-03-21 10:01] VITALS: BP 103/55
[2022-03-21 10:06] VITALS: BP 119/60
[2022-03-21 10:21] VITALS: BP 114/61
== END 2022-03-21 10:35 | disposition home or self-care (01) ==
LOC: SSTAY O 08:45
PROVIDERS: ATTEND Radiology Vascular & Interventional Radiology
DX: J90 Pleural effusion, not elsewhere classified (principal); K70.30 Alcoholic cirrhosis of liver without ascites; E87.1 Hypo-osmolality and hyponatremia; D64.9 Anemia, unspecified; E80.6 Other disorders of bilirubin metabolism; Z98.890 Other specified postprocedural states; Z79.899 Other long term (current) drug therapy; Z87.891 Personal history of nicotine dependence; Z85.05 Personal history of malignant neoplasm of liver
CPT/HCPCS: 32555; J3490

== ENCOUNTER 2022-04-05 07:38 | Day surgery (SDC) | payer MEDICAID ==
[~2022-04-05] VITALS: Ht 175.3 cm; Wt 73.2 kg
[~2022-04-05 07:38] MED LIST changes: +IBUP-1984 PO
[2022-04-05] MEDS ORDERED: albumin 25% 100mL bottle x 1 IV PRN (08:05)
[2022-04-05 08:17] VITALS: BP 118/68
[2022-04-05] MEDS ORDERED: LIDOcaine 1%/PF 5ML 10 MG/ML VIAL IJ ONE (08:30)
[2022-04-05 09:40] VITALS: BP 112/68
[2022-04-05 09:55] VITALS: BP 110/64
[2022-04-05 10:10] VITALS: BP 110/59
[2022-04-05 19:38] VITALS: BP 110/64
== END 2022-04-05 10:15 | disposition home or self-care (01) ==
LOC: SSTAY O 07:38
PROVIDERS: ATTEND Radiology Diagnostic Radiology
DX: J90 Pleural effusion, not elsewhere classified (principal); D64.9 Anemia, unspecified; E87.1 Hypo-osmolality and hyponatremia; E80.6 Other disorders of bilirubin metabolism; Z85.05 Personal history of malignant neoplasm of liver; Z72.89 Other problems related to lifestyle; Z87.891 Personal history of nicotine dependence; Z98.890 Other specified postprocedural states; Z79.899 Other long term (current) drug therapy
CPT/HCPCS: 32555; J3490

== ENCOUNTER 2022-04-18 07:29 | Day surgery (SDC) | payer MEDICAID ==
[~2022-04-18] VITALS: Ht 175.3 cm; Wt 75.7 kg
[2022-04-18 07:40] VITALS: BP 126/77
[2022-04-18] MEDS ORDERED: LIDOcaine 1%/PF 5ML 10 MG/ML VIAL SQ ONE (07:50)
[2022-04-18] MEDS ORDERED: ACET-1059 PO (07:52)
[2022-04-18] MEDS ORDERED: albumin 25% 100mL bottle x 1 IV PRN (08:20)
[2022-04-18 09:01] VITALS: BP 124/70
[2022-04-18 09:04] VITALS: BP 124/70
[2022-04-18 09:11] VITALS: BP 126/69
[2022-04-18 09:26] VITALS: BP 119/68
== END 2022-04-18 09:45 | disposition home or self-care (01) ==
LOC: SSTAY O 07:29
PROVIDERS: ATTEND Radiology Vascular & Interventional Radiology
DX: J90 Pleural effusion, not elsewhere classified (principal); E87.1 Hypo-osmolality and hyponatremia; D64.9 Anemia, unspecified; Z85.05 Personal history of malignant neoplasm of liver; Z72.89 Other problems related to lifestyle; Z87.891 Personal history of nicotine dependence; Z88.0 Allergy status to penicillin; Z79.899 Other long term (current) drug therapy
CPT/HCPCS: 32555; J3490; Z7610; 49083

== ENCOUNTER 2022-04-30 09:23 | Emergency (ER) | payer MEDICAID ==
[~2022-04-30] VITALS: Ht 175.3 cm; Wt 75.0 kg
[~2022-04-30 09:23] MED LIST changes: +ACET-1059 PO; -ACET500C5 PO; -NICO-630
[2022-04-30 12:42] LABS: BASOPHILS % (AUTO) 0.3 % (0-1); EOSINOPHILS # (AUTO) 0.1 X10'3 (0-0.9); EOSINOPHILS % (AUTO) 1.2 % (0-6); HEMATOCRIT 39.6 % (42.0-52.0); HEMOGLOBIN 13.8 g/dl (14.0-17.9); LYMPHOCYTES # (AUTO) 0.7 X10'3 (1.1-4.8); LYMPHOCYTES % (AUTO) 7.4 % (21-51); MEAN CORPUSCULAR HEMOGLOBIN 32.5 PG (27.0-31.0); MEAN CORPUSCULAR HGB CONC 34.8 g/dL (33.0-36.5); MEAN CORPUSCULAR VOLUME 93.2 FL (78-98); MEAN PLATELET VOLUME 6.7 FL (7.4-10.4); MONOCYTES # (AUTO) 1.4 X10'3 (0-0.9); MONOCYTES % (AUTO) 15.4 % (2-12); NEUTROPHILS # (AUTO) 6.7 X10'3 (1.8-7.7); NEUTROPHILS % (AUTO) 75.7 % (42-75); PLATELET COUNT 78 X10'3 (140-440); RED BLOOD COUNT 4.24 X10'6 (4.70-6.10); RED CELL DISTRIBUTION WIDTH 16.5 % (11.5-14.5); WHITE BLOOD COUNT 8.9 X10'3 (4.5-11.0)
[2022-04-30 12:58] VITALS: BP 117/74
[2022-04-30] MEDS ORDERED: LIDOcaine 1% 30ml preserv. free vial SQ STA (12:58)
[2022-04-30 13:02] LABS: ALANINE AMINOTRANSFERASE 103 U/L (12-78); ALBUMIN 2.8 G/DL (3.4-5.0); ALKALINE PHOSPHATASE 160 IU/L (46-116); ANION GAP 9 (8-16); ASPARTATE AMINO TRANSFERASE 211 U/L (10-37); BILIRUBIN,TOTAL 6.1 MG/DL (0.1-1.0); BLOOD UREA NITROGEN 13 MG/DL (7-18); BUN/CREATININE RATIO 14.1 (5.4-32.0); CALCIUM 8.4 MG/DL (8.5-10.1); CHLORIDE 101 MMOL/L (99-107); CREATININE 0.92 MG/DL (0.60-1.10); GLUCOSE 107 MG/DL (70-104); POTASSIUM 4.5 MMOL/L (3.5-5.1); SODIUM 133 MMOL/L (135-145); eGFR 84 ML/MIN
[2022-04-30 13:04] LABS: ALBUMIN/GLOBULIN RATIO 1.3 (1.1-1.5); LIPASE 109 U/L (73-393)
[2022-04-30] MEDS ORDERED: morphine 4 MG/ML inj SYRINge IV ONE (13:40)
[2022-04-30] MEDS ORDERED: oxymetazoline 15 ML nasal spray NS ONE (13:40)
== END 2022-04-30 14:31 | disposition home or self-care (01) ==
LOC: ER 09:24
DX: J90 Pleural effusion, not elsewhere classified (principal); K72.90 Hepatic failure, unspecified without coma; Z85.9 Personal history of malignant neoplasm, unspecified; Z90.49 Acquired absence of other specified parts of digestive tract; Z72.89 Other problems related to lifestyle; Z88.0 Allergy status to penicillin; Z79.899 Other long term (current) drug therapy
CPT/HCPCS: 36415; 71045; 80053; 83690; 85025; 85610; 96374; 99284; J2270; Z7610; 99283

== ENCOUNTER 2022-05-10 07:36 | Day surgery (SDC) | payer MEDICAID ==
[2022-05-10] VITALS (9 sets, daily range): BP systolic 118–134; BP diastolic 59–77
[~2022-05-10] VITALS: Ht 175.3 cm; Wt 75.1 kg
[2022-05-10] MEDS ORDERED: LIDOcaine 1%/PF 5ML 10 MG/ML VIAL SQ ONE (07:50)
[2022-05-10] MEDS ORDERED: albumin 25% 100mL bottle x 1 IV PRN (08:00)
[2022-05-10] MEDS ORDERED: [UNRECOGNIZED DRUG - OTHER] PO (08:01)
== END 2022-05-10 11:30 | disposition home or self-care (01) ==
LOC: SSTAY O 07:36
PROVIDERS: ATTEND Radiology Diagnostic Radiology
DX: J94.8 Other specified pleural conditions (principal)
CPT/HCPCS: 32555; Z7610; A4615

== ENCOUNTER 2022-05-20 06:50 | Day surgery (SDC) | payer MEDICAID ==
[~2022-05-20] VITALS: Ht 175.3 cm; Wt 71.4 kg
[~2022-05-20 06:50] MED LIST changes: +[UNRECOGNIZED DRUG - OTHER] PO
[2022-05-20] MEDS ORDERED: LIDOcaine 1% 30ml preserv. free vial SQ STA (06:58)
[2022-05-20 07:30] VITALS: BP 107/65
[2022-05-20] MEDS ORDERED: albumin 25% 100mL bottle x 1 IV PRN (07:30)
[2022-05-20 10:04] VITALS: BP 134/73
[2022-05-20 10:15] VITALS: BP 134/70
== END 2022-05-20 10:20 | disposition home or self-care (01) ==
LOC: SSTAY O 06:50
PROVIDERS: ATTEND Radiology Diagnostic Radiology
DX: J90 Pleural effusion, not elsewhere classified (principal)
CPT/HCPCS: 32555; C1729; Z7610; 49083; A6258; A6449

== ENCOUNTER 2022-05-30 20:12 | Inpatient (IN) | payer MEDICAID ==
[~2022-05-30] VITALS: Ht 175.3 cm; Wt 70.4 kg
[~2022-05-30 20:12] MED LIST changes: +LENV1CAP PO
[2022-05-30 21:31] LABS: BASOPHILS % (AUTO) 0.3 % (0-1); EOSINOPHILS # (AUTO) 0.1 X10'3 (0-0.9); EOSINOPHILS % (AUTO) 1.1 % (0-6); HEMATOCRIT 43.8 % (42.0-52.0); HEMOGLOBIN 15.5 g/dl (14.0-17.9); LYMPHOCYTES % (AUTO) 9.7 % (21-51); MEAN CORPUSCULAR HEMOGLOBIN 33.7 PG (27.0-31.0); MEAN CORPUSCULAR HGB CONC 35.3 g/dL (33.0-36.5); MEAN CORPUSCULAR VOLUME 95.5 FL (78-98); MEAN PLATELET VOLUME 6.4 FL (7.4-10.4); MONOCYTES # (AUTO) 1.3 X10'3 (0-0.9); MONOCYTES % (AUTO) 12.8 % (2-12); NEUTROPHILS # (AUTO) 7.6 X10'3 (1.8-7.7); NEUTROPHILS % (AUTO) 76.1 % (42-75); PLATELET COUNT 88 X10'3 (140-440); RED BLOOD COUNT 4.59 X10'6 (4.70-6.10); RED CELL DISTRIBUTION WIDTH 21.1 % (11.5-14.5)
[2022-05-30 21:54] LABS: ALANINE AMINOTRANSFERASE 78 U/L (12-78); ALBUMIN 2.3 G/DL (3.4-5.0); ALKALINE PHOSPHATASE 165 IU/L (46-116); ANION GAP 18 (8-16); BLOOD UREA NITROGEN 47 MG/DL (7-18); BUN/CREATININE RATIO 14.8 (5.4-32.0); CALCIUM 8.4 MG/DL (8.5-10.1); CHLORIDE 93 MMOL/L (99-107); CREATININE 3.18 MG/DL (0.60-1.10); SODIUM 126 MMOL/L (135-145); eGFR 20 ML/MIN
[2022-05-30 22:10] LABS: ALBUMIN/GLOBULIN RATIO 1.5 (1.1-1.5); ASPARTATE AMINO TRANSFERASE 119 U/L (10-37); BILIRUBIN,TOTAL 35.2 MG/DL (0.1-1.0); GLUCOSE 114 MG/DL (70-104); POTASSIUM 5.6 MMOL/L (3.5-5.1); TOTAL PROTEIN 3.8 G/DL (6.4-8.2)
[2022-05-30 22:15] LABS: TOTAL CARBON DIOXIDE 14.8 MMOL/L (24-32)
[2022-05-31] MEDS ORDERED: normal saline 1000ml 1,000 ML IV ONE (01:30)
[2022-05-31] MEDS ORDERED: lactulose 20gm/30ml cup PO ONE ×2 (01:35→09:00)
[2022-05-31] MEDS ORDERED: ondansetron/PF 4mg/2ml inj IV ONE (02:55)
[2022-05-31] MEDS ORDERED: pantoprazole IV 80 MG in normal saline 100ml IV soln 100 ML IV ONE (04:35)
[2022-05-31] MEDS ORDERED: pantoprazole 40MG/NS 100ML BAG 100 ML IV ONE ×2 (04:35→04:40)
[2022-05-31] MEDS ORDERED: octreotide inj. 500 MCG in normal saline 100ml IV soln 97.5 ML IV ONE (04:35)
[2022-05-31] MEDS ORDERED: ondansetron/PF 4mg/2ml inj IV PRN (04:50)
[2022-05-31] MEDS ORDERED: CefTRIAXone/D5W-Rocephin 1gm 50 ML IV ONE (05:30)
[2022-05-31] MEDS ORDERED: albumin (human) 25% 100 ML IV solution IV ONE (05:30)
[2022-05-31] MEDS: pantoprazole 40MG/NS 100ML BAG 100 ML IV SCH ×6 (05:42→21:46)
[2022-05-31] MEDS: normal saline 1000ml 1,000 ML IV SCH ×3 (06:00→23:26)
[2022-05-31] MEDS ORDERED: CALCIUM GLUC 1gm/50ml NACL,iso 50 ML IV ONE (06:00)
[2022-05-31] MEDS ORDERED: ketamine 50 mg/ml 10ml vial IV ONE ×2 (06:15→06:50)
[2022-05-31 06:19] LABS: GASTRIC OCCULT BLOOD POSITIVE (Neg)
[2022-05-31] MEDS ORDERED: LIDOcaine 2% 10ml TOPICAL JELLY (Urojet) TP ONE (06:40)
[2022-05-31] MEDS ORDERED: LIDOcaine 1% W/epiNEPHrine 1:100,000 20ml vial SQ ONE (06:45)
[2022-05-31 07:15] LABS: ABG BASE EXCESS -12.9 mmol/L (-2.0-2.0); ABG HCO3 10.7 mmol/L (22.0-26.0); ABG PCO2 (T) 20.6 mmHg (35.0-48.0); ABG PO2 (T) 83.6 mmHg (75.0-100.0); ALLEN'S TEST POSITIVE; FCOHb 1.6 % (0.0-3.9); FMetHb 0.2 % (0.0-1.5); FO2Hb 94.3 % (94-97); PATIENT TEMPERATURE 36.6; TOTAL HEMOGLOBIN 14.5 G/dl (14.0-18.0)
[2022-05-31] MEDS: lactulose 20gm/30ml cup PO SCH ×3 (08:04→23:04)
--- NOTE | 2022-05-31 11:05 | NUR ---
Spoke with Dr.Todd Vasquez nurse at [facility] ([facility]). recommends to stop all aggressive treatment and consider palliative care. [phone]. aware
[2022-05-31 11:49] LABS: ALANINE AMINOTRANSFERASE 53 U/L (12-78); ALBUMIN 2.1 G/DL (3.4-5.0); ALKALINE PHOSPHATASE 112 IU/L (46-116); ANION GAP 18 (8-16); BLOOD UREA NITROGEN 45 MG/DL (7-18); CALCIUM 7.2 MG/DL (8.5-10.1); CHLORIDE 103 MMOL/L (99-107); SODIUM 133 MMOL/L (135-145)
[2022-05-31 11:50] LABS: ALBUMIN/GLOBULIN RATIO 2.1 (1.1-1.5); ASPARTATE AMINO TRANSFERASE 85 U/L (10-37); BILIRUBIN,TOTAL 25.2 MG/DL (0.1-1.0); BUN/CREATININE RATIO 15.9 (5.4-32.0); CREATININE 2.83 MG/DL (0.60-1.10); GLUCOSE 77 MG/DL (70-104); TOTAL PROTEIN 3.1 G/DL (6.4-8.2); eGFR 23 ML/MIN
[2022-05-31 11:52] LABS: TOTAL CARBON DIOXIDE 12.5 MMOL/L (24-32)
--- NOTE | 2022-05-31 17:03 | NUR ---
Sodium Bicarb not available on unit. Pharmacy notified.
[2022-05-31] MEDS: sodium bicarbonate (8.4%) inj. 100 MEQ in dextrose 5%-water 1,000 ML IV SCH (17:43)
--- NOTE | 2022-05-31 18:30 | NUR ---
Pt received from Vanessa Ponce RN. Liang stable
[2022-05-31] MEDS: octreotide inj. 500 MCG in normal saline 100ml IV soln 97.5 ML IV SCH (21:00)
[2022-06-01] MEDS: pantoprazole 40MG/NS 100ML BAG 100 ML IV SCH ×5 (01:31→21:00)
[2022-06-01 05:36] LABS: ALANINE AMINOTRANSFERASE 57 U/L (12-78); ALBUMIN 2.1 G/DL (3.4-5.0); ALKALINE PHOSPHATASE 111 IU/L (46-116); ANION GAP 8 (8-16); BLOOD UREA NITROGEN 48 MG/DL (7-18); CALCIUM 7.9 MG/DL (8.5-10.1); CHLORIDE 103 MMOL/L (99-107); SODIUM 132 MMOL/L (135-145); TOTAL CARBON DIOXIDE 21.5 MMOL/L (24-32)
[2022-06-01 05:37] LABS: ASPARTATE AMINO TRANSFERASE 110 U/L (10-37); BILIRUBIN,TOTAL 27.7 MG/DL (0.1-1.0); GLUCOSE 116 MG/DL (70-104); POTASSIUM 4.7 MMOL/L (3.5-5.1); TOTAL PROTEIN 2.8 G/DL (6.4-8.2); eGFR 23 ML/MIN
[2022-06-01 05:45] LABS: BUN/CREATININE RATIO 17.1 (5.4-32.0)
[2022-06-01 05:52] LABS: BASOPHILS # (AUTO) 0.1 X10'3 (0-0.2); BASOPHILS % (AUTO) 0.5 % (0-1); EOSINOPHILS # (AUTO) 0.1 X10'3 (0-0.9); EOSINOPHILS % (AUTO) 0.8 % (0-6); HEMATOCRIT 34.6 % (42.0-52.0); HEMOGLOBIN 12.2 g/dl (14.0-17.9); LYMPHOCYTES # (AUTO) 0.8 X10'3 (1.1-4.8); LYMPHOCYTES % (AUTO) 7.5 % (21-51); MEAN CORPUSCULAR HEMOGLOBIN 33.6 PG (27.0-31.0); MEAN CORPUSCULAR HGB CONC 35.2 g/dL (33.0-36.5); MEAN CORPUSCULAR VOLUME 95.6 FL (78-98); MEAN PLATELET VOLUME 6.5 FL (7.4-10.4); MONOCYTES # (AUTO) 1.1 X10'3 (0-0.9); MONOCYTES % (AUTO) 10.9 % (2-12); NEUTROPHILS # (AUTO) 8.2 X10'3 (1.8-7.7); NEUTROPHILS % (AUTO) 80.3 % (42-75); RED BLOOD COUNT 3.62 X10'6 (4.70-6.10); RED CELL DISTRIBUTION WIDTH 21.7 % (11.5-14.5); WHITE BLOOD COUNT 10.3 X10'3 (4.5-11.0)
[2022-06-01 05:58] LABS: PLATELET COUNT 50 X10'3 (140-440)
[2022-06-01] MEDS: sodium bicarbonate (8.4%) inj. 100 MEQ in dextrose 5%-water 1,000 ML IV SCH ×4 (06:00→22:00)
[2022-06-01 06:29] LABS: ANISOCYTOSIS 3+; PLATELET ESTIMATE DECREASED
[2022-06-01 06:30] LABS: POIKILOCYTOSIS FEW
[2022-06-01] MEDS ORDERED: CefTRIAXone/D5W-Rocephin 1gm 50 ML IV SCH (08:00)
[2022-06-01] MEDS ORDERED: diphenhydrAMINE 50 mg/ml inj ONE (08:41)
[2022-06-01] MEDS ORDERED: LIDOcaine Viscous 15ml cup ONE (08:41)
[2022-06-01] MEDS ORDERED: MIDAZolam 1 MG/ML 5ML VIAL ONE (08:41)
[2022-06-01] MEDS ORDERED: fentaNYL/PF 50MCG/1 ML 2ML syringe ONE (08:41)
[2022-06-01] MEDS: lactulose 20gm/30ml cup PO SCH ×3 (08:55→21:00)
[2022-06-01] MEDS: albumin (human) 25% 100ml IV 100 ML IV SCH ×2 (08:55→20:00)
[2022-06-01 09:11] VITALS: BP 135/71
--- NOTE | 2022-06-01 10:05 | NUR ---
Patient is in Nuclear med
[2022-06-01 10:07] VITALS: BP 106/66
[2022-06-01 10:17] VITALS: BP 100/51
[2022-06-01 10:27] VITALS: BP 94/50
[2022-06-01 10:37] VITALS: BP 96/51
[2022-06-01] MEDS: normal saline 1000ml 1,000 ML IV SCH ×2 (10:50→20:50)
--- NOTE | 2022-06-01 11:12 | NUR ---
Pt back from GI. He is drowsy, non repsonsive to verbal stimuli as prior, Due to sedation used during scope. Responds to painful stimuli. VSS. Monitoring ongoing
--- NOTE | 2022-06-01 16:48 | NUR ---
Dr Espinosa returned page after the 3rd page. Pt's Critical report provided to . No new orders at this time per Md Espinosa. Continue to monitor
[2022-06-01] MEDS: octreotide inj. 500 MCG in normal saline 100ml IV soln 97.5 ML IV SCH (17:00)
[2022-06-01] MEDS ORDERED: LIDOcaine 1% W/epiNEPHrine 1:100,000 20ml vial SQ ONE (17:05)
--- NOTE | 2022-06-01 19:49 | NUR ---
Discussion with family (pt's sister and pt's mother) about change in code status and get patient more comfortable. Sister and Mother agree with change in code status/comfort care. Pt's primary rn present during meeting with Dr Mcgraw
[2022-06-01] MEDS ORDERED: lactulose 20gm/30ml cup NG SCH (21:00)
--- NOTE | 2022-06-01 22:46 | NUR ---
Comfort measures instituted. Family left patient's bedside after visit. Patient not in any form of distress at this time. Monitoring ongoing
[2022-06-02] MEDS: pantoprazole 40MG/NS 100ML BAG 100 ML IV SCH (01:00)
[2022-06-02] MEDS: morphine 4 MG/ML inj SYRINge IV PRN ×2 (10:21→13:56)
--- NOTE | 2022-06-02 13:29 | NUR ---
MOTHER IS AT BEDSIDE
[2022-06-02] MEDS: LORazepam 2 mg/ml vial IV PRN (13:56)
[2022-06-02] MEDS: morphine 10mg/0.5ml (conc. morphine) oral syringe PO PRN (15:11)
--- NOTE | 2022-06-02 15:21 | NUR ---
pt is having upper airway congestion with difficultly clearing secretion. meds given
[2022-06-02 17:00] VITALS: BP 103/52
--- NOTE | 2022-06-02 17:00 | NUR ---
pt arrived to room on bed via ed staff. He is not responding to verbal stimuli at this time. Comfort care patient.
--- NOTE | 2022-06-02 18:53 | NUR ---
Sachi MCGOWAN taking over care of patient. Patient on comfort care.
[2022-06-02 22:00] VITALS: BP 107/61
--- NOTE | 2022-06-03 06:15 | NUR ---
Patient in room ORTHO 4007. I have received report from Sachi and had the opportunity to ask questions and assume patient care.
[2022-06-03 10:00] VITALS: BP 100/46
--- NOTE | 2022-06-03 10:30 | NUR ---
Pt's Mom and friend at bedside. Pt remains unresponsive. Respirations regular at this time. Pt does not exhibit pain.
--- NOTE | 2022-06-03 16:00 | NUR ---
condition unchanged throughout shift. Unresponsive. Random occasional flutter of eye opening. moist breaths clear with cough. Scant urine output and stool via rectal tube.
--- NOTE | 2022-06-03 18:15 | NUR ---
Problems reprioritized. Patient report given, questions answered & plan of care reviewed with Sachi MCGOWAN.
[2022-06-03] MEDS: LORazepam 2 mg/ml vial IV PRN (21:22)
--- NOTE | 2022-06-04 06:52 | NUR ---
Patient in room ORTHO 4007. I have received report from Sachi MCGOWAN and had the opportunity to ask questions and assume patient care.
--- NOTE | 2022-06-04 07:19 | NUR ---
PRESSURE ULCER EDUCATION: DEFINITION: A pressure ulcer is an area of skin that breaks down when you stay in one position too long. The constant pressure against the skin reduces the blood flow to that area and the affected tissue dies. CAUSES: "Being bedridden or in a wheelchair "Fragile skin "Having a chronic condition, such as diabetes or vascular disease "Inability to move certain parts of your body without assistance "Older age "Incontinence of urine or stool SYMPTOMS: "A reddened area that DOES NOT turn white when pressed on - this can be the beginning of a pressure ulcer "A blister, deep sore or a crater - these can be advanced pressure ulcers FIRST AID: "Relieve the pressure on this area "Keep the area clean and dry "Call your primary doctor if you see any of the above symptoms "DO NOT massage the area "DO NOT use a donut shaped or ring shaped pillow- these actually interfere with the blood flow and cause complications PREVENTION: "Check for pressure ulcers everyday "Change position at least every two hours to relieve pressure "Use items that help relieve pressure- pillows, sheepskin, foam padding, and powders. "Keep skin clean and dry "Eat healthy well balanced meals "Exercise daily IF YOU SEE ANY OF THESE SYMPTOMS WHILE IN THE HOSPITAL - TELL YOUR NURSE IMMEDIATELY. IF YOU SEE ANY OF THESE SYMPTOMS WHILE AT HOME OR HAVE ANY QUESTIONS OR CONCERNS ABOUT PRESSURE ULCERS - CALL YOUR PRIMARY DOCTOR IMMEDIATELY. Addendum: 06/04/22 at 0720 by Joyce Hernandez LVN Amended: Links added.
[2022-06-04 07:30] VITALS: BP 66/24
[2022-06-04] MEDS ORDERED: atropine sulfate 1% ophthalmic drops SL PRN (08:15)
[2022-06-04] MEDS: morphine 10mg/0.5ml (conc. morphine) oral syringe PO PRN (08:16)
--- NOTE | 2022-06-04 08:33 | NUR ---
RN IS TO DOCUMENT YES TO ALL APPLICABLE AREAS Pronouncement of : 1. Time Physician Notified:Dr Espinosa 2. Date of :06/04/22 3. Time of : 835 4. DNR/Withdraw life support documented:yes 5. Monitor strip has been placed on chart:yes 6. Assessment process is of one-minute duration and includes following criteria: a) Patient is unresponsive to all stimuli: yes b) Pupils fixed and non-reactive:yes c) Auscultation of precordium reveals absence of heart tones:yes d) Auscultation of lungs reveals absence of breath sounds:yes e) Absence of blood pressure / all vital signs:yes f) QRS complexes are not present on monitor / EKG strip: yes g) Pacer spikes without capture:na 4. Comments:
--- NOTE | 2022-06-04 08:43 | NUR ---
PAGER ID: [phone] MESSAGE: [phone] Re: Altaf Roque has trying to get ahold of family.
--- NOTE | 2022-06-04 08:44 | NUR ---
Tried to call mother again phone still answering machine.
--- NOTE | 2022-06-04 11:47 | NUR ---
Mother Loida has left and is ready for her son to be picked up by [facility]. Called [facility] and spoke to Hayley she will get them working on pepper picker
== END 2022-06-04 13:35 | DRG 279 ==
LOC: ER 20:13 → ED HOLD 05-31 04:51 → ORTHO 4S 06-02 16:54
PROVIDERS: ADMIT Internal Medicine; ATTEND Internal Medicine
PROC: 0W9930Z Drainage of Right Pleural Cavity with Drainage Device, Percutaneous Approach (ICD-10-PCS; principal; 2022-05-31)
PROC: 0D9670Z Drainage of Stomach with Drainage Device, Via Natural or Artificial Opening (ICD-10-PCS; 2022-05-31)
PROC: 0DB68ZX Excision of Stomach, Via Natural or Artificial Opening Endoscopic, Diagnostic (ICD-10-PCS; 2022-06-01)
DX: K72.00 Acute and subacute hepatic failure without coma (principal); K76.7 Hepatorenal syndrome; G93.41 Metabolic encephalopathy; Z76.82 Awaiting organ transplant status; I85.00 Esophageal varices without bleeding; K72.10 Chronic hepatic failure without coma; K92.0 Hematemesis; C22.0 Liver cell carcinoma; E87.2 Acidosis; D62 Acute posthemorrhagic anemia; K31.89 Other diseases of stomach and duodenum; J91.8 Pleural effusion in other conditions classified elsewhere; J93.9 Pneumothorax, unspecified; K76.6 Portal hypertension; D64.9 Anemia, unspecified; Z60.2 Problems related to living alone; E87.5 Hyperkalemia; D68.4 Acquired coagulation factor deficiency; K70.31 Alcoholic cirrhosis of liver with ascites; D69.59 Other secondary thrombocytopenia; L40.9 Psoriasis, unspecified; Z66 Do not resuscitate; K82.8 Other specified diseases of gallbladder; K83.8 Other specified diseases of biliary tract; N17.9 Acute kidney failure, unspecified; Z51.5 Encounter for palliative care; Z90.49 Acquired absence of other specified parts of digestive tract; Z88.0 Allergy status to penicillin; Z79.899 Other long term (current) drug therapy
CPT/HCPCS: 36415; 36600; 45380; 70450; 71045; 71250; 74176; 76700; 80053; 82140; 82271; 82803; 83605; 85008; 85018; 85025; 85610; 86885; 86900; 86901; 86920; 87635; 93005; 99152; 99291; 99292; A4314; A4615; A6258; A6402; A6449; C9113; G0378; J0610; J0696; J1200; J2060; J2250; J2270; J2354; J2405; J3010; J3490; J7030; J7070; P9047